=== PATIENT | male | born 1950 | race Caucasian/White ===

== ENCOUNTER 2019-11-26 01:07 | Day surgery (SDC) | payer MEDICARE, SELFPAY ==
[2019-11-21 14:02] VITALS: BMI 29.9
[2019-11-26] MEDS: LACTATED RINGERS 1,000 ML 150 ML IV CONT (08:16)
[2019-11-26 08:24] VITALS: BP 146/85; PULSE 72; RESP 16; TEMP 36.4; O2SAT 98; BMI 30.3
--- NOTE | 2019-11-26 08:31 | P.PNAN_ITS ---
Anes - Initial Pre Proc Eval Procedure: Operation Date: 11/26/19 09:00 Proposed Procedures p Screening Colonoscopy - Tex Mackay MD Date/Time: 11/26/19 08:31 Surgeon: Tex Mackay MD Pre Op Diagnosis: Hx of Colon Polyps Patient Data Age: 69 Gender: M Height: 6 ft Weight: 101.4 kg Last Vital Signs Temp 97.6 F 11/26/19 08:24 Pulse 72 11/26/19 08:24 Resp 16 11/26/19 08:24 BP 146/85 H 11/26/19 08:24 Pulse Ox 98 11/26/19 08:24 Allergies Allergy/AdvReac Type Severity Reaction Status Date / Time No Known Allergies Allergy Verified 11/26/19 08:12 Home Medications Medication Instructions Recorded Confirmed Type irbesartan 300 mg PO DAILY 11/21/19 11/26/19 History simvastatin 40 mg PO DAILY 11/21/19 11/26/19 History Patient hx anesthesia problems: none Family hx anesthesia problems: none [facility] Past Medical History Medical History (Updated 11/26/19 @ 08:30 by Silverio Roger MD) Arthritis Hyperlipidemia Hypertension Anes - Eval Final PreProcedure Day of Procedure 11/26/19 08:31 Patient weight: overweight Heart: regular rate and rhythm Lungs: clear to auscultation Airway: Mallampati scale class II Neurological: alert and oriented Last oral intake: >/= 8 hours ASA classification: II Emergent: no Anesthetic plan: proceed Anesthesia type and monitoring: general GIVS and standard monitoring Informed Consent: The patient's anesthetic plan and its attendant risks and benefits were discussed with the patient/family/POA. Questions were solicited and answers provided to the satisfaction of the patient/family/POA.
--- NOTE | 2019-11-26 09:34 | P.CONGI_ITS ---
Assessment and Plan Additional Plan This is a 69-year-old white male patient seen in evaluation at the request Dr. Cricket Ayala. Patient's current weight appetite bowel movements are normal. He denies any blood in his stools. He does have a prior history of colon polyps approximately 10 years ago. He denies any change in his bowel habits recently. Past medical history is significant for hypertension. Hypercholesterolemia. And a TIA. Medications include irbesartan, and simvastatin. No known drug allergies. Family history noncontributory. Physical exam reveals patient to be alert. Vital signs stable. HEENT exam unremarkable. Lungs are clear to auscultation and percussion. Heart is without murmur or extra sounds. Abdominal exam bowel sounds are present soft nontender with no organomegaly. Digital external rectal exam normal. Impression 1. Personal history of colon polyps. Plan is for screening colonoscopy. Further recommendations pending results of exam. GI Consult Note Consult date/time: 11/26/19 09:34 HPI: Aravind Chavez is a 69 year old male [facility] Past Medical History Medical History (Updated 11/26/19 @ 08:30 by Silverio Roger MD) Arthritis Hyperlipidemia Hypertension Meds Home Medications and Allergies Home Medications Medication Instructions Recorded Confirmed Type irbesartan 300 mg PO DAILY 11/21/19 11/26/19 History simvastatin 40 mg PO DAILY 11/21/19 11/26/19 History Allergies Allergy/AdvReac Type Severity Reaction Status Date / Time No Known Allergies Allergy Verified 11/26/19 08:12 Vital Signs Vital Signs - 24 hr 11/26/19 08:24 Temperature 36.4 C Pulse Rate 72 Respiratory Rate 16 Blood Pressure 146/85 H Pulse Oximetry 98
[2019-11-26] MEDS: SIMETHICONE ORAL SUSPENSION 20 MG/0.3 ML 30 ML BOTTLE 0.6 ML IRRIGATION (09:45)
[2019-11-26 09:56] VITALS: BP 136/74; PULSE 64; RESP 18; O2SAT 98
[2019-11-26 10:06] VITALS: BP 145/76; PULSE 56; RESP 15; O2SAT 97
[2019-11-26 10:16] VITALS: BP 148/79; PULSE 62; RESP 15; O2SAT 97
== END 2019-11-26 10:27 | disposition home or self-care (01) ==
PROVIDERS: PCP Family Medicine; Visit Provider Internal Medicine Gastroenterology
PROC: 0DJD8ZZ Inspection of Lower Intestinal Tract, Via Natural or Artificial Opening Endoscopic (ICD-10-PCS; CPT 45378; principal; 2019-11-26 09:00)
DX: Z12.11 Encounter for screening for malignant neoplasm of colon (principal); K63.5 Polyp of colon; K64.8 Other hemorrhoids; I10 Essential (primary) hypertension; E78.5 Hyperlipidemia, unspecified; M19.90 Unspecified osteoarthritis, unspecified site; Z86.73 Personal history of transient ischemic attack (TIA), and cerebral infarction without residual deficits
CPT/HCPCS: 45385; 88305; J2704; J7120

== ENCOUNTER → 2020-12-22 11:38 | Outpatient (CLI) | payer MEDICARE, SELFPAY ==
--- NOTE | ~2020-12-22 | XR_ITS ---
EXAMINATION: XR knee LT min 4V DATE: 12/22/2020 11:53 INDICATION: Left knee osteoarthritis. TECHNIQUE: 4 views of left knee were obtained. COMPARISON: None. FINDINGS: There is varus angulation at the knee. No fracture. There is severe osteoarthritis of media l compartment, moderate osteoarthritis of patellofemoral compartment, and mild osteoarthritis of late ral compartment. There is a small knee joint effusion. IMPRESSION: 1. Severe left knee osteoarthritis. 2. Small left knee joint effusion. Reviewed, dictated and finalized at location A.
== END ==
PROVIDERS: PCP Family Medicine; Visit Provider Family Medicine
DX: M17.9 Osteoarthritis of knee, unspecified (principal); M25.462 Effusion, left knee
CPT/HCPCS: 73564

== ENCOUNTER 2021-02-15 11:43 | Outpatient (CLI) | payer MEDICARE, SELFPAY ==
--- NOTE | 2021-02-15 12:44 | ECG_ITS ---
Measurements Intervals [place] Rate: 54 P: 15 MD: 152 QRS: -18 QRSD: 162 T: 105 QT: 428 QTc: 409 Interpretive Statements SINUS BRADYCARDIA LEFT BUNDLE BRANCH BLOCK BASELINE ARTIFACT- I, II, AVR, AVL, AVF ABNORMAL ECG Electronically Signed On 02-15-2021 13:04:44 CDT by Chuck Barber D.O.
[2021-02-15 13:40] LABS: Basophils Absolute Auto 0.1 K/mm3 (0.0-0.1); Basophils Percent Auto 0.7 % (0.2-1.2); Eosinophils Absolute Auto 0.1 K/mm3 (0-0.3); Eosinophils Percent Auto 0.7 % (0-4.4); Hematocrit 48.4 % (42.0-52.0); Hemoglobin 16.6 g/dL (14.0-18.0); Immature Granulocyte Absolute 0.02 K/mm3 (0.00-0.031); Immature Granulocyte Percent A 0.3 % (0-0.5); Lymphocytes Absolute Auto 1.83 K/mm3 (0.9-3.2); Lymphocytes Percent Auto 26.5 % (18.3-44.2); Mean Corpuscular HGB Conc 34.3 g/dl (32-36); Mean Corpuscular Hemoglobin 30.3 pg (26-34); Mean Corpuscular Volume 88.3 fl (80-100); Mean Platelet Volume 10.8 fl (7.4-10.4); Monocytes Absolute Auto 0.6 K/mm3 (0.1-0.6); Monocytes Percent Auto 8.1 % (2.6-8.5); Neutrophils Absolute Auto 4.4 K/mm3 (1.3-6.7); Neutrophils Percent Auto 63.7 % (45.5-73.1); Platelet Count Result 162 k/mm3 (150-375); Red Blood Count 5.48 M/mm3 (4.6-6.20); Red Cell Distribution Width 13.3 % (11.5-14.5); White Blood Count 6.9 K/mm3 (4.5-10.0)
[2021-02-15 13:47] LABS: Anion Gap 2 mmol/L (8-16); Blood Urea Nitrogen 24 mg/dL (9-20); Calcium 10.1 mg/dL (8.4-10.2); Carbon Dioxide 33 mmol/L (22-30); Chloride 103 mmol/L (98-107); Estimated Glomerular Filt Rate > 60; Glucose 106 mg/dL (75-110); Potassium 4.2 mmol/L (3.4-5.0); Sodium 138 mmol/L (137-145)
[2021-02-15 13:50] LABS: Hemoglobin A1C 5.3 % (<5.7)
[2021-02-15 13:54] LABS: Albumin Level 4.5 g/dL (3.5-5.1)
[2021-02-15 14:15] LABS: Urine Cotinine NEGATIVE
== END 2021-02-15 11:44 | disposition home or self-care (01) ==
LOC: ANHSURGERY 11:47
PROVIDERS: Anesthesiology; PCP Family Medicine; Visit Provider Orthopaedic Surgery
DX: Z01.818 Encounter for other preprocedural examination (principal); M17.12 Unilateral primary osteoarthritis, left knee; I10 Essential (primary) hypertension; R00.1 Bradycardia, unspecified; I44.7 Left bundle-branch block, unspecified; Z51.81 Encounter for therapeutic drug level monitoring; Z79.899 Other long term (current) drug therapy
CPT/HCPCS: 36415; 80048; 80307; 82040; 83036; 85025; 86850; 86900; 86901; 93005

== ENCOUNTER → 2021-02-20 02:24 | Outpatient (CLI) | payer MEDICARE, SELFPAY ==
[2021-02-20 19:43] LABS: SARS-CoV-2 RNA PCR Negative
== END ==
PROVIDERS: PCP Family Medicine; Visit Provider Orthopaedic Surgery
DX: Z01.812 Encounter for preprocedural laboratory examination (principal); Z20.822 Contact with and (suspected) exposure to COVID-19
CPT/HCPCS: C9803; U0003; U0005

== ENCOUNTER 2021-02-25 13:26 | Observation (INO) | payer MEDICARE, SELFPAY ==
[2021-02-15 11:55] VITALS: BMI 32.0
[2021-02-15 12:49] VITALS: BP 139/78; PULSE 60; RESP 16; TEMP 37; O2SAT 98
--- NOTE | 2021-02-18 16:18 | PM.IMHP ---
H&P: HPI History of Present Illness Date/Time: 02/18/21 16:18 The patient is a 70-year-old male who presents with left knee pain. He has a chronic ongoing history of pain localized left knee joint this is due to primary osteoarthritis. The patient has aching pain worse with activities and relieved by rest. He reports swelling crepitation and problems with standing or walking for long periods. He has limitation of function is losing motion over time as well. He has started pain wrist pain and night pain despite conservative measures including cortisone therapy and anti-inflammatories over the years his symptoms continue. X-rays show advanced primary osteoarthritis worsening over the years. Symptoms continue to interfere with his daily life at this point the patient is discussed treatment options in detail with Dr. Mitchell he would now like to proceed with a left total knee arthroplasty. Chief Complaint: left knee pain due to primary osteoarthritis advanced nature. Review of Systems Review of Systems: All systems reviewed & are unremarkable except as noted in HPI and below PMFSH Past Medical History Medical History Arthritis Hyperlipidemia Hypertension Social History Social History Smoking packs per day: 1 Smoking cigarettes per day: 20.0 Years smoked: 15 Smoking pack-years: 15.00 Smoking status: Former smoker Tobacco type: cigarettes Smoking end date: 10/09/84 Additional smoking assessment comments: DENIES ANY FORM OF TOBACCO USE Alcohol intake: current Drinks per week: 6 Spiritual care concerns: No Meds Home Medications and Allergies Home Medications Medication Instructions Recorded Confirmed Type irbesartan 300 mg PO HS 11/21/19 02/15/21 History simvastatin 20 mg PO HS 11/21/19 02/15/21 History cetirizine [Zyrtec] 10 mg PO DAILY 02/15/21 02/15/21 History glucosamine-chondroitin [Osteo 1 tablet PO BID 02/15/21 02/15/21 History Bi-Flex] indapamide 2.5 mg PO DAILY 02/15/21 02/15/21 History ijvbskpcuvqo-ugvlowev-tjtaak 1 tablet PO DAILY 02/15/21 02/15/21 History [Centrum Silver] omega 1-hvw-azr-fish oil [Fish Oil] 1 cap PO DAILY 02/15/21 02/15/21 History Allergies Allergy/AdvReac Type Severity Reaction Status Date / Time No Known Allergies Allergy Verified 02/15/21 11:57 Exam Narrative: Exam Narrative: On exam the patient is noted be a well-developed well-nourished male no acute distress he is alert oriented x3. Normal mood and affect. HEENT exam within normal limits. Hearing and vision are intact. Respiratory is good not stressed. Pulse regular rate and rhythm. Abdomen benign. extremities showed the patient's left knee to be painful with manipulation and range of motion. He has crepitation through the arc of motion mild effusion swelling tenderness along the joint lines. Motion is limited to 5 to about 95? with pain at extremes of motion. Patient walks with an antalgic gait because of his left knee pain. Neurovascular is otherwise intact strength is 5 5. skin is intact without rashes or lesions. Central nervous system exam within normal limits. Assessment and Plan Additional Plan By x-ray and exam the patient is noted to have severe primary osteoarthritis left knee joint. The patient has discussed risks benefits limitations and alternatives to surgery in great detail with Dr. Mitchell, the patient is now ready to proceed with a left total knee arthroplasty. The patient is scheduled to undergo surgery 02/24/2021 at [facility] with Dr. Mitchell. The patient voices understanding and agrees with the above plan.
[2021-02-24] VITALS (16 sets, daily range): BP systolic 102–135; BP diastolic 47–70; PULSE 55–68; RESP 11–20; TEMP 35.8–36.7; O2SAT 92–100; BMI 31.4
[2021-02-24] MEDS: ACETAMINOPHEN 500 MG TABLET 1000 MG PO (06:20)
[2021-02-24] MEDS: LACTATED RINGERS 1,000 ML 30 ML IV CONT ×2 (06:33→09:29)
[2021-02-24] MEDS: TRANEXAMIC ACID 1,000MG/ISO100 1,000 MG/100 ML BAG 200 MG IVPB (06:34)
--- NOTE | 2021-02-24 06:57 | WPDANESEPPF ---
Anes - Initial Pre Proc Eval Procedure: Operation Date: 02/24/21 07:30 Proposed Procedures p Left Total Knee Arthroplasty - Qamar Mitchell MD Date/Time: 02/24/21 06:57 Surgeon: Qamar Mitchell MD Pre Op Diagnosis: OA left knee Patient Data Age: 70 Gender: M Height: 1.8 m Weight: 102 kg Last Vital Signs Temp 36.6 C 02/24/21 06:14 Pulse 63 02/24/21 06:14 Resp 18 02/24/21 06:14 BP 116/70 02/24/21 06:14 Pulse Ox 96 02/24/21 06:14 Allergies Allergy/AdvReac Type Severity Reaction Status Date / Time No Known Allergies Allergy Verified 02/24/21 06:03 Home Medications Medication Instructions Recorded Confirmed Type irbesartan 300 mg PO HS 11/21/19 02/24/21 History simvastatin 20 mg PO HS 11/21/19 02/24/21 History cetirizine [Zyrtec] 10 mg PO DAILY 02/15/21 02/24/21 History glucosamine-chondroitin [Osteo 1 tablet PO BID 02/15/21 02/24/21 History Bi-Flex] indapamide 2.5 mg PO DAILY 02/15/21 02/24/21 History ayhajelmgdha-qbjvyrvw-oubnkr 1 tablet PO DAILY 02/15/21 02/24/21 History [Centrum Silver] omega 1-jkd-pvp-fish oil [Fish Oil] 1 cap PO DAILY 02/15/21 02/24/21 History Patient hx anesthesia problems: none Family hx anesthesia problems: none PMFSH Past Medical History Medical History (Updated 02/23/21 @ 13:05 by David Chopra DO) Arthritis Hyperlipidemia Hypertension TIA (transient ischemic attack) global amnesia - 2007, 2012 Social History Social History Smoking packs per day: 1 Smoking cigarettes per day: 20.0 Years smoked: 15 Smoking pack-years: 15.00 Smoking status: Former smoker Tobacco type: cigarettes Smoking end date: 10/09/84 Additional smoking assessment comments: DENIES ANY FORM OF TOBACCO USE Alcohol intake: current Drinks per week: 6 Living arrangements: with family Spiritual care concerns: No Anes - Eval Final PreProcedure Day of Procedure 02/24/21 06:57 Patient weight: obese Heart: regular rate and rhythm Lungs: clear to auscultation and normal air movement Airway: Mallampati scale class III Neurological: alert and oriented Last oral intake: >/= 8 hours ASA classification: III Emergent: no Anesthetic plan: proceed Anesthesia type and monitoring: general LMA and standard monitoring Informed Consent: The patient's anesthetic plan and its attendant risks and benefits were discussed with the patient/family/POA. Questions were solicited and answers provided to the satisfaction of the patient/family/POA.
--- NOTE | 2021-02-24 07:07 | WPDANESPNB ---
Anes - Peripheral Nerve Block Date/Time: 02/24/21 07:07 I have discussed with the patient/family/POA the placement of a peripheral nerve block for post-operative pain management, including associated risks, benefits, complications, and side effects. Alternative methods of post-operative analgesia were detailed. Questions were solicited and answers provided to the satisfaction of the patient/family/POA. Time-Out: A pre-procedural Time-Out was completed immediately before starting the procedure and confirmed: Patient Identification, Site, Procedure, Patient Position and the Availability of Requisite Equipment. Clinical Indications: Acute post-operative pain management requested by the operative surgeon. Nerve Block Insertion Note Anes-nerve block: adductor canal left Patient position: supine Skin prep: chlorhexidine Needle: 22 gauge, stimulating, insulated echogenic needle. Needle length: 80 mm Technique: ultrasound Injectate: bupivacaine 0.5% with epi 5 mcg/ml (30cc - no epi) Observations: tolerated well Complications: none Procedure start time:: 719 Procedure end time:: 722
--- NOTE | 2021-02-24 07:13 | WPDHPUPDATE1 ---
History and Physical Update Update Date/Time: 02/24/21 07:13 History and Physical has been reviewed, including an updated exam of the patient. There are NO changes in the patient's condition. Risks, benefits, and alternatives have been discussed and questions answered. Patient agrees to proceed with procedure.
[2021-02-24] MEDS: ceFAZolin 2 GM/D5W 50 ML 2 GM/50 ML BAG IVPB (07:34)
--- NOTE | 2021-02-24 08:51 | PM.PROC ---
Procedure Note - Detailed Date of procedure: 02/24/21 Pre-op diagnosis: OA left knee Post-op diagnosis: same Procedure performed: [Left] total knee arthroplasty Description of procedure: The patient was brought to the operating room. General anesthetic was administered. Placed on the operating table and sterilely prepped and draped in usual manner. A longitudinal incision was made. Tourniquet inflated to 300 mmHg for a total of [time] minutes. Dissection carried down to the fascia. Medial parapatellar incision was made and the patella subluxated laterally. Patella cut from [27] to [17] mm and sized for a [37] mm button. The tibia cut perpendicular to the long axis and femur cut in 5 degrees of valgus, a [65] femur trialed. [75] tibia was felt to fit the best. The soft tissue balanced, hemostasis obtained. All [address], [75] tibia, [65] femur, [37] mm patella, and [16AS] mm poly. Motion was 0-125 degrees with good stablility and flexion and extension. The wound was closed with #2 vicryl, 2-0 Vicryl and jono. Anesthesia: GETA Surgeon: Qamar Mitchell MD Music [employer] Assistant: Cody Smith Estimated blood loss (mL): 200 Drains: No Packing: No Pathology: none sent Complications: No immediate complications Condition: stable Disposition: PACU Findings: arthritis
--- NOTE | 2021-02-24 09:42 | SUR.PHASEI ---
0935 xrays of left knee done.
--- NOTE | 2021-02-24 11:11 | ADMGEN ---
This patient, Aravind Chavez, was admitted to 2 Medical Room 242-01. Patient/family oriented to hospital policies and general routines including ID bracelet, bed and alarms, visiting hours, pain management, procedures, bathroom and other care routines, personal items, smoking policy, room service/diet, and visiting hours. Information on how to activate the Rapid Response Team has been discussed. Patient/Family are encouraged to report perceived risks to care and to ask questions if they do not understand what they are told or what they should do.
[2021-02-24] MEDS: SODIUM CHLORIDE 0.9% IV 1,000 ML 125 ML IV CONT (11:41)
[2021-02-24] MEDS: oxyCODONE/ACETAMINOPHEN (*CRX) 5-325 MG TABLET 1 TABLET PO (13:07)
[2021-02-24] MEDS: ONDANSETRON INJ 4 MG/2 ML VIAL IV PUSH (14:11)
--- NOTE | 2021-02-24 14:32 | PC.NURSE ---
Patient sitting up in chair. Called staff to room due to feeling woozy and nauseated . Went to room and patient pale, diaphoretic and feeling as if he might pass out. Called assistance to room. Telemetry showing HR of 37. Assisted patient back to bed utilizing the filippo steady. Patient recovered quickly after returning to bed and with bed in trendelenberg. VS revealed BP of 100/57, O2 sat 95%, HR in the 50s after returning to bed. Patient became more alert and color improved. Denied further nausea and stated he felt much better . After 10 minutes, HR was in the 70s and remained there. Called Va KELLER and left a voice message notifying her of incident. Also left a message regarding holding patient's B/P meds - Indapamide and Irbesartan. remains at bedside.
[2021-02-24] MEDS: HYDROcodone/acetaminophen (*CRX) 7.5-325 MG TABLET 1 TAB PO ×2 (16:23→22:25)
[2021-02-24] MEDS: DOCUSATE SODIUM 100 MG CAPSULE PO (16:24)
[2021-02-24] MEDS: RIVAROXABAN 10 MG TABLET PO (16:24)
--- NOTE | 2021-02-24 16:28 | PM.IMCN ---
Assessment and Plan Assessment and plan (1) Status post total left knee replacement: Code(s): Z96.652 - Presence of left artificial knee joint Status: Acute Assessment and Plan: POD#0 s/p elective left total knee arthroplasty by Dr. Mitchell 02/24/21. Wound care, DVT prophylaxis, pain control per the primary service. (2) Near syncope: Code(s): R55 - Syncope and collapse Status: Acute Assessment and Plan: Episode of near-syncope a few hours postoperatively. Nursing reported he was sitting up in the chair when he began to feel unwell, heart rate down to 39, blood pressure 102/47. He was transferred by nursing staff back to bed and recovered quickly per nursing. Heart rates now stable again. Continue cardiac telemetry overnight. Vasovagal episode is suspected, recommend continuing IV fluids for now and monitoring fluid status, vital signs. HR back into 70s now and stable. (3) Hypertension: Qualifiers: Hypertension type: unspecified Qualified Code(s): I10 - Essential (primary) hypertension Code(s): I10 - Essential (primary) hypertension Status: Chronic Assessment and Plan: We will hold his indapamide and irbesartan given his hypotension earlier. Monitor BP and adjust treatment as needed. (4) Hyperlipidemia: Qualifiers: Hyperlipidemia type: unspecified Qualified Code(s): E78.5 - Hyperlipidemia, unspecified Code(s): E78.5 - Hyperlipidemia, unspecified Status: Chronic Assessment and Plan: Resume home statin therapy. Additional Plan Thank you for allowing me to participate in this pleasant gentleman's care. Do not hesitate to call for any questions or concerns. HPI Data of Consult Consult date: 02/24/21 Requesting Physician: Qamar Mitchell MD Primary Care Provider: Cricket Ayala MD Consult Narrative Reason for consult: Medical management Narrative: Date of Service 02/24/21 I am asked to see this patient in consultation for postoperative management of medical comorbidities at the request of Dr. Mitchell. The supervising physician for this medical consultation is Dr Darcy Nevarez. Mr. Chavez is a 70yo M with history of arthritis, dyslipidemia, and hypertension who has been followed by orthopedic surgery for management of chronic left knee pain due to primary osteoarthritis. Despite attempts of conservative management with cortisone injections and anti-inflammatory medications, his symptoms persist thus he presented for elective knee replacement. He underwent left total knee arthroplasty today by Dr. Mitchell. He has tolerated the procedure well although he did have an episode of near-syncope earlier today while sitting up in the bedside chair. Nursing reports his heart rate was as low as 39, blood pressure 102/47 at which time he was transferred back to bed and recovered quickly with heart rates back up into the 70s and his symptoms resolved. He is feeling well at this time and denies any chest pain, shortness of breath, palpitations, nausea, vomiting, abdominal pain. He describes expected left knee discomfort. Review of Systems Review of Systems: All systems reviewed & are unremarkable except as noted in HPI and below PMFSH Past Medical History Medical History Arthritis Hyperlipidemia Hypertension TIA (transient ischemic attack) global amnesia - 2007, 2012 Family History Family History (Updated 02/24/21 @ 17:24 by Va Patino PA-C) Sibling Diabetes mellitus Type 1 diabetes Mother Pacemaker Dementia Father Abdominal aortic aneurysm Carcinoma of colon Skin cancer Social History Social History (Updated 02/24/21
[2021-02-24] MEDS: SIMVASTATIN 20 MG TABLET PO (20:44)
[2021-02-24] MEDS: traMADol HCL (*CRX) 50 MG TABLET PO (20:48)
[2021-02-25] VITALS (10 sets, daily range): BP systolic 111–144; BP diastolic 49–59; PULSE 66–81; RESP 16–18; TEMP 36.4–37.2; O2SAT 95–99
--- NOTE | ~2021-02-25 | XR_ITS ---
EXAMINATION: XR knee LT 2V EXAM DATE: 02/24/2021 09:41 INDICATION: Postoperative left knee arthroplasty. TECHNIQUE: Portable frontal, crosstable lateral projections left knee obtained immediately following arthroplasty performed by orthopedic surgeon Qamar Mitchell MD. FINDINGS: Patient is status post total knee arthroplasty. The orthopedic hardware is in expected po sition. There are jono overlying the anterior aspect of the knee. There is small amount of subcu taneous gas, gas within the knee joint space. Overlying soft tissue swelling. Correlate with proced ure note. IMPRESSION: Status post total left knee arthroplasty. Reviewed, dictated and finalized at location A.
--- NOTE | ~2021-02-25 | US_ITS ---
EXAMINATION: US venous doppler LE EXAM DATE: 02/25/2021 11:19 INDICATION: L calf tenderness x 1 month. Knee replacement yesterday. TECHNIQUE: Multiple grayscale, color flow and Doppler images of the lower extremity deep venous syste ms bilaterally were obtained and reviewed. There is no prior study for comparison. FINDINGS: Right side: The right common femoral, femoral and profunda veins demonstrate normal color flow, respi ratory variation, augmentation and compressibility. Compressibility, color flow confirmed within the right popliteal, posterior tibial, peroneal, and greater saphenous veins. Left side: The left common femoral, femoral and profunda veins demonstrate normal color flow, respira tory variation, augmentation and compressibility. Compressibility, color flow confirmed within the l eft popliteal, posterior tibial, peroneal, and greater saphenous veins. Along the upper medial aspect of the calf there is heterogeneous echogenicity region which appears to be intramuscular, avascular area, measuring 15 x 2.4 x 6.4 cm, appearance most consistent with hemat nguyen. Myositis ossificans or muscle tear not excludable. Consider follow-up ultrasound. IMPRESSION: 1. No lower extremity deep venous thrombosis bilaterally. 2. Left calf region most likely intramuscular hematoma but no muscle tear or myositis ossificans not excludable. Clinical correlation and consider one-month follow-up ultrasound. Reviewed, dictated and finalized at location A. IMPRESSION: 1. No lower extremity deep venous thrombosis bilaterally. 2. Left calf region most likely intramuscular hematoma but no muscle tear or m yositis ossificans not excludable. Clinical correlation and consider one-month follow-up ultrasound.
[2021-02-25] MEDS: CYCLOBENZAPRINE HCL 10 MG TABLET PO ×3 (02:50→20:36)
[2021-02-25 05:43] LABS: Basophils Percent Auto 0.1 % (0.2-1.2); Eosinophils Percent Auto 0.1 % (0-4.4); Hematocrit 38.5 % (42.0-52.0); Hemoglobin 13.3 g/dL (14.0-18.0); Immature Granulocyte Absolute 0.03 K/mm3 (0.00-0.031); Immature Granulocyte Percent A 0.3 % (0-0.5); Immature Platelet Fraction Pct 4.3 % (0.9-11.2); Lymphocytes Absolute Auto 0.97 K/mm3 (0.9-3.2); Lymphocytes Percent Auto 10.6 % (18.3-44.2); Mean Corpuscular HGB Conc 34.5 g/dl (32-36); Mean Corpuscular Hemoglobin 30.2 pg (26-34); Mean Corpuscular Volume 87.3 fl (80-100); Mean Platelet Volume 10.4 fl (7.4-10.4); Monocytes Absolute Auto 1.3 K/mm3 (0.1-0.6); Monocytes Percent Auto 13.9 % (2.6-8.5); Neutrophils Absolute Auto 6.9 K/mm3 (1.3-6.7); Platelet Count Result 139 k/mm3 (150-375); Red Blood Count 4.41 M/mm3 (4.6-6.20); Red Cell Distribution Width 13.1 % (11.5-14.5); White Blood Count 9.2 K/mm3 (4.5-10.0)
[2021-02-25 05:58] LABS: Anion Gap 3 mmol/L (8-16); Blood Urea Nitrogen 25 mg/dL (9-20); Calcium 8.5 mg/dL (8.4-10.2); Carbon Dioxide 29 mmol/L (22-30); Chloride 103 mmol/L (98-107); Estimated CRCL calculation 68 ml/min; Estimated Glomerular Filt Rate > 60; Glucose 124 mg/dL (75-110); Sodium 135 mmol/L (137-145)
[2021-02-25] MEDS: HYDROcodone/acetaminophen (*CRX) 7.5-325 MG TABLET 1 TAB PO ×3 (06:08→18:17)
[2021-02-25] MEDS: DOCUSATE SODIUM 100 MG CAPSULE PO ×2 (08:23→17:32)
--- NOTE | 2021-02-25 09:48 | PM.IMPN ---
Progress Note: A&P Assessment and Plan (1) Status post total left knee replacement: Code(s): Z96.652 - Presence of left artificial knee joint Status: Acute Assessment and Plan: POD#1 s/p elective left total knee arthroplasty by Dr. Mitchell 02/24/21. Wound care, DVT prophylaxis (Xarelto 10mg daily), pain control per the primary service. He describes pain in left calf with L ankle and knee range of motion. He describes left calf tightness and tenderness with walking for about 1 month. He tells me he can hardly put weight on left leg today. I encouraged him to discuss this with Dr Mitchell and/or DENNISE Ross. Left lower leg is a bit swollen this morning, not unexpected POD#1. Symptoms may be of musculoskeletal etiology but given his history and exam I feel it would be prudent to obtain venous dopplers to rule out L leg DVT. He tells me this did cross his mind as he received J&J COVID vaccine shortly before these symptoms started. (2) Near syncope: Code(s): R55 - Syncope and collapse Status: Resolved Assessment and Plan: Resolved. Episode yesterday of near-syncope a few hours postoperatively. Nursing reported he was sitting up in the chair when he began to feel unwell, heart rate down to 39, blood pressure 102/47. He was transferred by nursing staff back to bed and recovered quickly per nursing. Heart rates now stable again. Cardiac telemetry overnight is reviewed and shows no arrhythmias or other episodes of bradycardia. Vasovagal episode is suspected. (3) Hypertension: Qualifiers: Hypertension type: unspecified Qualified Code(s): I10 - Essential (primary) hypertension Code(s): I10 - Essential (primary) hypertension Status: Chronic Assessment and Plan: We will hold his indapamide and irbesartan given his vagal episode yesterday and continued BPs on the lower end. I recommended to him follow up with Dr Ayala (PCP) in 1 week and hold irbesartan and indapamide until he sees PCP. He agrees to continue monitoring his BP at home and will keep a log to show Dr Ayala at his appointment. One or both of these medications will likely need added back. Monitor BP and adjust treatment as needed. (4) Hyperlipidemia: Qualifiers: Hyperlipidemia type: unspecified Qualified Code(s): E78.5 - Hyperlipidemia, unspecified Code(s): E78.5 - Hyperlipidemia, unspecified Status: Chronic Assessment and Plan: Resume home statin therapy. Additional Plan Thank you for allowing me to participate in this pleasant gentleman's care. Venous dopplers LE ordered to rule out L leg DVT. Hold his blood pressure medications at discharge and follow up with PCP. Do not hesitate to call for any questions or concerns. Subjective Date/time seen: 02/25/21 09:45 Interval history: Mr. Chavez is a pleasant 70 yo M seen in follow up POD#1 s/p elective right total knee arthroplasty by Dr Mitchell. He endorses a painful left calf with decreased range of motion this morning. He notes that he has had left calf tightness and pain with dorsal extension over the last 1 month. He has swelling of left lower leg today postoperatively but had not noticed left leg swelling prior to surgery. He denies any chest pain or shortness of breath. Tolerated breakfast. Had mild nausea around 6AM taking medications without food, this has resolved. No vomiting. No other dizziness. , Hanane, at the bedside. Review of Systems Review of Systems: All systems reviewed & are unremarkable except as noted in HPI and below Exam Narrative: Exam Narrative: General: Well-developed male resting comfortably sitting up in bed working with PT in no acute distress. HEENT: Normocephalic, EO
[2021-02-25] MEDS: SODIUM CHLORIDE 0.9% IV 500 ML 999 ML IV CONT (10:28)
--- NOTE | 2021-02-25 11:30 | PM.PNORT ---
Progress Note: A&P Additional Plan Patient is status post total knee arthroplasty postop day 1, venous duplex scan is pending rule out DVT. Continue with pain control measures physical therapy as tolerated. Encourage hydration p.o. hopefully we can discharge the patient tomorrow, the patient's voiced understanding with the above plan. Subjective Subjective Date/Time Seen: 02/25/21 11:30 Patient is postop day 1 status post total knee arthroplasty, going slowly in therapy having a lot of postoperative pain became diaphoretic, dizziness when he was doing therapy yesterday and today, once he sits down he starts to feel a lot better. Due to some swelling and calf tenderness a venous duplex scan has been ordered. Patient otherwise has no complaints no other problems noted postoperatively. Review of Systems Review of Systems: All systems reviewed & are unremarkable except as noted in HPI and below Exam Narrative: Exam Narrative: Patient is alert oriented x3. Normal mood and affect. Vital signs are stable he is afebrile. Neurovascular patient is intact. Wound is clean and dry. Postoperative knee wound is looking good, he does have some calf tenderness, moderate postoperative swelling, on that side notes pain with physical therapy that was causing him to feel faint. Exam is otherwise unremarkable. Objective Data Vital Signs Vital Signs: Vital Signs - 24 hr 02/24/21 11:45 02/24/21 12:00 02/24/21 12:45 Temperature 35.8 C L 36.0 C L Pulse Rate 59 L 63 61 Respiratory Rate 20 20 Blood Pressure 126/56 L 126/57 L Pulse Oximetry 92 93 02/24/21 14:00 02/24/21 16:00 02/24/21 17:00 Temperature 35.8 C L 36.7 C Pulse Rate 55 L 59 L 66 Respiratory Rate 18 18 Blood Pressure 102/47 L 125/65 Pulse Oximetry 94 97 02/24/21 20:00 02/25/21 00:00 02/25/21 04:00 Temperature 36.5 C 36.6 C Pulse Rate 63 67 66 Respiratory Rate 18 16 Blood Pressure 124/52 L 111/54 L Pulse Oximetry 99 95 02/25/21 05:30 02/25/21 08:00 02/25/21 10:15 Temperature 36.4 C 36.4 C Pulse Rate 72 67 72 Respiratory Rate 18 18 Blood Pressure 118/59 L 123/49 L Pulse Oximetry 98 97 Intake/Output Intake/Output: Intake & Output 02/22/21 02/23/21 02/24/21 02/25/21 23:59 23:59 23:59 23:59 Intake Total 1560 590 Output Total 200 400 Balance 1360 190 Meds/Results Medications: Active Medications Generic Name Dose Route Start Last Admin Trade Name Freq PRN Reason Stop Dose Admin Hydrocodone Bitart/Acetaminophen 1 tab 02/24/21 08:54 02/25/21 06:08 Hydrocodone/Acetaminophen (*Crx) 7.5-325 Mg Tablet PO 1 tab Q6H PRN Administration Pain Rated 7-10 Cyclobenzaprine HCl 10 mg 02/24/21 08:54 02/25/21 02:50 Cyclobenzaprine Hcl 10 Mg Tablet PO 10 mg Q8H PRN Administration Spasms Docusate Sodium 100 mg 02/24/21 17:00 02/25/21 08:23 Docusate Sodium 100 Mg Capsule PO 100 mg BID KURTIS Administration Indapamide 2.5 mg 02/24/21 09:00 02/24/21 15:30 Indapamide 2.5 Mg Tablet PO Not Given DAILY KURTIS Irbesartan 300 mg 02/24/21 21:00 Irbesartan 150 Mg Tablet PO HS KURTIS Naloxone HCl 0.1 mg 02/24/21 08:54 Naloxone Hcl 0.4 Mg/Ml Vial IV PUSH Q2M PRN Opiate Reversal Ondansetron HCl 4 mg 02/24/21 11:46 02/24/21 14:11 Ondansetron Inj 4 Mg/2 Ml Vial IV PUSH 4 mg Q4H PRN Administration Nausea And Vomiting Oxycodone/Acetaminophen 1 tablet 02/24/21 08:54 02/24/21 13:07 Oxycodone/Acetaminophen (*Crx) 5-325 Mg Tablet PO 1 tablet Q4H PRN Administration Pain Rated 4-6 Rivaroxaban 10 mg 02/24/21 17:00 02/24/21 16:24 Rivaroxaban 10 Mg Tablet PO 03/07/21 17:01 10 mg DAILY@17 KURTIS Administration Simvastatin 20 mg 02/24/21 21:00 02/24/21 20:44 Simvastatin 20 Mg Tablet PO 20 mg HS KURTIS Administration Tramadol HCl 50 mg 02/24/21 08:54 02/24/21 20:48 Tramadol Hcl (*Crx) 50 Mg Tablet PO 50 mg Q4H PRN Administration
--- NOTE | 2021-02-25 13:32 | P.PNAN_ITS ---
Anes - Prog Note Post-Op Date/Time: 02/25/21 13:32 Cardiovascular status: normal Respiratory status: normal Airway patency: baseline Mental status: baseline Post-Op hydration status: normal Vital Signs: Last Vital Signs Temp 36.4 C 02/25/21 10:15 Pulse 69 02/25/21 12:00 Resp 18 02/25/21 10:15 BP 123/49 L 02/25/21 10:15 Pulse Ox 97 02/25/21 10:15 Pain Score (VAS): 10 I/O: Intake & Output 02/24/21 02/25/21 02/25/21 23:59 07:59 15:59 Intake Total 1190 350 740 Output Total 200 400 Balance 990 -50 740 Laboratory Tests 02/25/21 05:13 02/25/21 05:13 02/25/21 02/25/21 05:13 05:13 WBC 9.2 RBC 4.41 L Hgb 13.3 L D Hct 38.5 L MCV 87.3 MCH 30.2 MCHC 34.5 RDW 13.1 Plt Count 139 L MPV 10.4 Immature Gran % (Auto) 0.3 Neut % (Auto) 75.0 H Lymph % (Auto) 10.6 L [place] % (Auto) 13.9 H Eos % (Auto) 0.1 Baso % (Auto) 0.1 L Lymph # (Auto) 0.97 [place] # (Auto) 1.3 H Eos # (Auto) 0.0 Baso # (Auto) 0.0 Abs Immat Gran (auto) 0.03 Absolute Neuts (auto) 6.9 H Absolute Nucleated RBC 0.0 Nucleated RBC % 0.0 % Immature Plt Fraction 4.3 Sodium 135 L Potassium 4.0 Chloride 103 Carbon Dioxide 29 Anion Gap 3 L BUN 25 H Creatinine 1.10 Estim Creat Clear Calc 68 Estimated GFR > 60 Glucose 124 H Calcium 8.5 Magnesium 2.0 Post-procedural complaints: none Patient Feedback: Patient satisfied with anesthetic care.
[2021-02-25] MEDS: SIMVASTATIN 20 MG TABLET PO (20:36)
[2021-02-26] VITALS (11 sets, daily range): BP systolic 130–153; BP diastolic 50–70; PULSE 77–108; RESP 16–22; TEMP 36.8–37.1; O2SAT 92–99
--- NOTE | 2021-02-26 | ECHO_ITS ---
Patient Info Name: Aravind Chavez Age: 70 years : 1950 Gender: Male Ht: 71 in Wt: 224 lbs BSA: 2.28 m2 HR: 91 bpm BP: 145 / 70 mmHg Heart Rhythm: Sinus Rhythm Technical Quality: Good Exam Date: 02/26/2021 2:57 PM Exam Location: [facility] Patient Status: Inpatient Admit Date: 02/25/2021 Staff Ordering Physician: Va Patino PA-C Wheel Setter: Samir Rodriguez, MERISSACS, RT Attending Provider: Qamar Mitchell MD Exam Type: CA echo doppler color flow Study Info Indications R01.1 - Cardiac murmur, unspecified Complete two-dimensional, color flow and Doppler transthoracic echocardiogram is performed with contrast to opacify the left ventricle and to improve the deliniation of the left ventricle endocardial borders. Summary 1. Left ventricular systolic function is hyperdynamic, estimated at >75%. 2. Technically difficult study with limited views. 3. Left ventricular chamber dimension is normal. 4. There is mildly increased left ventricular wall thickness. 5. Left ventricular septal wall motion is abnormal with septal motion related to bundle branch block. 6. The left ventricular diastolic function is grade II diastolic dysfunction. 7. No clear evidence of LVOT obstruction. 8. The aortic valve is not well visualized. Velocities likely elevated due to hyperdynamic LV systolic function. 9. There is mild aortic valve stenosis with a peak velocity of 342 cm/s, mean gradient of 17 mmHg, and aortic valve area of 1.7 cm2. 10. There is no aortic valve regurgitation. 11. There is probably mild mitral valve regurgitation, however, regurgitant jet not well visualized and appears more prominent on continuous wave Doppler. 12. The mitral valve has thickened leaflets. 13. The mitral valve annulus is moderately calcified. In 2 chamber view only there appears to be a focal echodensity below the anterior leaflet and annulus differential includes annular calcification, mass, artifact. Clinical correlation advised. Consider NILDA. 14. There is trace tricuspid valve regurgitation. 15. Mild pulmonary hypertension, estimated pulmonary arterial systolic pressure is 43 mmHg. Recommendations * Recommend transesophageal echocardiogram. Left Ventricle Technically difficult study with limited views. Left ventricular systolic function is hyperdynamic, estimated at >75%. Left ventricular chamber dimension is normal. There is mildly increased left ventricular wall thickness. Left ventricular septal wall motion is abnormal with septal motion related to bundle branch block. The left ventricular diastolic function is grade II diastolic dysfunction. No clear evidence of LVOT obstruction. Right Ventricle Right ventricular chamber dimension is normal. Right ventricular systolic function is normal. Left Atria Left atrial chamber dimension is mildly enlarged. Right Atria Right atrial chamber dimension is not well visualized. Aortic Valve The aortic valve is not well visualized. Velocities likely elevated due to hyperdynamic LV systolic function. There is mild aortic valve stenosis with a peak velocity of 342 cm/s, mean gradient of 17 mmHg, and aortic valve area of 1.7 cm2. There is no aortic valve regurgitation. Pulmonic Valve The pulmonic valve is not well visualized. Mitral Valve There is probably mild mitral valve regurgitation, however, regurgitant jet not well visualized and appears more prominent on continuous wave Doppler. The mitral valve has thickened leaflets. The mitral valve annulus
[2021-02-26] MEDS: HYDROcodone/acetaminophen (*CRX) 7.5-325 MG TABLET 1 TAB PO ×4 (00:29→19:22)
--- NOTE | 2021-02-26 08:53 | ECG_ITS ---
Measurements Intervals [place] Rate: 74 P: 258 FL: 166 QRS: -45 QRSD: 157 T: 101 QT: 409 QTc: 455 Interpretive Statements SINUS RHYTHM CHANGES TO ECTOPIC ATRIAL RHYTHM MARKED LEFT AXIS DEVIATION LEFT BUNDLE BRANCH BLOCK ABNORMAL ECG Electronically Signed On 02-26-2021 10:06:29 CDT by Chuck Barber D.O.
--- NOTE | 2021-02-26 09:13 | PM.IMPN ---
Progress Note: A&P Assessment and Plan (1) Status post total left knee replacement: Code(s): Z96.652 - Presence of left artificial knee joint Status: Acute Assessment and Plan: POD#2 s/p elective left total knee arthroplasty by Dr. Mitchell 02/24/21. Wound care, DVT prophylaxis (Xarelto stopped, see below), pain control per the primary service. (2) Ventricular arrhythmia: Code(s): I49.9 - Cardiac arrhythmia, unspecified Status: Acute Assessment and Plan: I was notified by RN at 0833 of VTach alarm on patient's telemetry while walking back from the bathroom with PT. He described palpitations but denies chest pain or shortness of breath. He notes he has no history of heart disease or arrhythmias to his knowledge. His mother did have a pacemaker and he is unsure of the indication. He is having quite a bit of pain with left calf hematoma which may have precipitated this? I do appreciate a systolic murmur and feel it would be prudent to obtain an echocardiogram while he is here. I appreciate any further recommendations from cardiology. (3) Intramuscular hematoma: Code(s): T14.8XXA - Other injury of unspecified body region, initial encounter Status: Acute Assessment and Plan: US venous doppler of CICI LE obtained yesterday due to patient describing left calf tightness and cramping ongoing over the last 1 month, worsened after surgery with decreased L ankle and L knee range of motion. US demonstrated what appears may be up to 15cm intramuscular hematoma to left calf. I discussed this last night with DENNISE Ross and we agreed to stop Xarelto which was started for DVT prophylaxis. Discussed he might start aspirin in a couple days instead. Check H&H today. (4) Near syncope: Code(s): R55 - Syncope and collapse Status: Resolved Assessment and Plan: Resolved. Episode 02/24 of near-syncope a few hours postoperatively. Nursing reported he was sitting up in the chair when he began to feel unwell, heart rate down to 39, blood pressure 102/47. He was transferred by nursing staff back to bed and recovered quickly per nursing. Vasovagal episode was suspected. He has been monitored on cardiac telemetry which revealed the episode of possible ventricular arrhythmia this morning. (5) Hypertension: Qualifiers: Hypertension type: unspecified Qualified Code(s): I10 - Essential (primary) hypertension Code(s): I10 - Essential (primary) hypertension Status: Chronic Assessment and Plan: His indapamide and irbesartan had been held due to vagal episode 02/24 and continued BPs on the lower end. Blood pressures are coming up overnight and this morning, resume his losartan. Indapamide still held. Monitor BP and will adjust treatment as needed. (6) Hyperlipidemia: Qualifiers: Hyperlipidemia type: unspecified Qualified Code(s): E78.5 - Hyperlipidemia, unspecified Code(s): E78.5 - Hyperlipidemia, unspecified Status: Chronic Assessment and Plan: Resumed home statin therapy. Additional Plan Thank you for allowing me to participate in this pleasant gentleman's care. Since telemetry shows what appears may have been ventricular tachycardia, I have ordered an EKG (although he is back in sinus rhythm now), echocardiogram, and requested cardiology consultation. He may benefit from further monitoring with Holter after discharge if appropriate. Would be reasonable to monitor patient overnight if OK with primary service. I have asked nursing to notify the primary service of the events this AM and today's plan. Do not hesitate to call for any questions or concerns.
[2021-02-26 09:59] LABS: Hematocrit 36.3 % (42.0-52.0); Hemoglobin 12.4 g/dL (14.0-18.0)
[2021-02-26] MEDS: DOCUSATE SODIUM 100 MG CAPSULE PO ×2 (10:02→18:05)
[2021-02-26] MEDS: IRBESARTAN 150 MG TABLET 300 MG PO (10:02)
[2021-02-26 10:06] LABS: Anion Gap 3 mmol/L (8-16); Blood Urea Nitrogen 20 mg/dL (9-20); Calcium 8.7 mg/dL (8.4-10.2); Carbon Dioxide 27 mmol/L (22-30); Chloride 104 mmol/L (98-107); Estimated CRCL calculation 68 ml/min; Estimated Glomerular Filt Rate > 60; Glucose 125 mg/dL (75-110); Magnesium 1.9 mg/dL (1.6-2.3); Potassium 3.8 mmol/L (3.4-5.0); Sodium 134 mmol/L (137-145)
--- NOTE | 2021-02-26 11:58 | PM.CNCAR ---
Assessment and Plan Assessment and plan (1) Ventricular arrhythmia: Code(s): I49.9 - Cardiac arrhythmia, unspecified Status: Acute Assessment and Plan: gate person alarm for VT was erroneous. Upon telemetry review patient noted to be in sinus tachycardia in the 130's with some artifact. No other arrhythmias noted on telemetry review. (2) Near syncope: Code(s): R55 - Syncope and collapse Status: Resolved Assessment and Plan: Secondary to pain response and possible dehydration. Would recommend pre-medicating with analgesics prior to physical therapy and encourage oral fluid intake. (3) Murmur, cardiac: Code(s): R01.1 - Cardiac murmur, unspecified Status: Acute Assessment and Plan: II/ systolic murmur loudest RUSB. Echocardiogram to be performed today - recommendations to follow with any significant findings related to this murmur (4) Left bundle branch block: Code(s): I44.7 - Left bundle-branch block, unspecified Status: Acute Assessment and Plan: Noted on 12 lead EKGs from 02/15/2021 and today, however was not noted on prior EKG from 2012. Would consider a nuclear stress test to assess for any coronary disease that might be the cause of this left bundle. However, patient states that he had a stress test recently as an outpatient as part of evaluation for his upcoming surgery. Will obtain those results from our office and will see patient in our office for outpatient follow-up. (5) Hyperlipidemia: Qualifiers: Hyperlipidemia type: unspecified Qualified Code(s): E78.5 - Hyperlipidemia, unspecified Code(s): E78.5 - Hyperlipidemia, unspecified Status: Chronic Assessment and Plan: Continue statin therapy. (6) Hypertension: Qualifiers: Hypertension type: unspecified Qualified Code(s): I10 - Essential (primary) hypertension Code(s): I10 - Essential (primary) hypertension Status: Chronic Assessment and Plan: Well controlled during this admission. Continue irbesartan and indapamide. (7) Intramuscular hematoma: Code(s): T14.8XXA - Other injury of unspecified body region, initial encounter Status: Acute Assessment and Plan: Anticoagulation being held. Slight downtrend in H&H today. Management per primary service. (8) Status post total left knee replacement: Code(s): Z96.652 - Presence of left artificial knee joint Status: Acute Assessment and Plan: Status post total knee arthroplasty on 02/24/2021. Management per primary service. History of Present Illness History of Present Illness Consult date/time: Date of service 02/26/21 11:58: Cardiology consultation for suspected ventricular tachycardia, pre syncope. Patient is a 70-year-old male with past medical history of hypertension, hyperlipidemia, and is status post left knee total arthroplasty on 02/24/2021. Patient states that this morning after he walked to the bathroom, he experienced a period of lightheadedness he felt like he may pass out. He states that this has happened on 2 other occasions following his surgery during physical therapy treatments. He also states that this has happened to him 1 time when he became dehydrated while golfing during hot weather. On this particular occasion this morning there was concern that the patient may be in ventricular tachycardia as the survey researcher indicated so. Patient states he thinks his symptoms lasted for couple of minutes. He states that his symptoms were resolved by lying down and have not returned. Patient is having a significant amount of pain in his left knee and lower leg with any out of bed activities. He says this pain is the worst during physical therapy treatments. He denies any palpitations, shortness of breath, chest pain associated with these episodes where he feels lightheaded. Reason For Visit: OA left knee Review of Systems
--- NOTE | 2021-02-26 12:36 | PM.PNORT ---
Progress Note: A&P Additional Plan Postop day 2 left total knee arthroplasty. Patient is having pain control issues difficulty with physical therapy and has a hematoma collection posterior calf. Cardiology workup is going to be done today if he is cleared in doing better tomorrow hopefully will be discharged home. Patient voiced understanding agrees above plan orthopedics will follow. Activity otherwise as tolerated, continue physical therapy for total knee protocol. Subjective Subjective Date/Time Seen: 02/26/21 12:36 Patient is postop day 2 status post left total knee arthroplasty, still having trouble with physical therapy and another episode today feeling faint or dizzy when up in therapy. Was unable to participate much, patient became tachycardic but no chest pain. Patient is going to be worked up by Cardiology prior to discharge. Venous duplex scan yesterday showed hematoma formation in the proximal calf likely due to some postoperative bleeding. The patient does have significant swelling throughout the entire left lower extremity. Xarelto has been held. Patient states his pain is a little better today still significant. He denies any other complaints right now. Review of Systems Review of Systems: All systems reviewed & are unremarkable except as noted in HPI and below Exam Narrative: Exam Narrative: Patient is alert oriented x3 normal mood and affect in no acute distress now in bed. Vital signs are stable afebrile neurovascular patient is intact wound is clean and dry. Left calf and left thigh are both moderately swollen with tenderness throughout. Venous duplex scan was negative for DVT. Objective Data Vital Signs Vital Signs: Vital Signs - 24 hr 02/25/21 14:00 02/25/21 16:00 02/25/21 18:00 Temperature 37.2 C 36.9 C Pulse Rate 73 73 81 Respiratory Rate 16 16 Blood Pressure 130/53 L 131/58 L Pulse Oximetry 95 99 02/25/21 20:00 02/26/21 00:00 02/26/21 04:00 Temperature 36.8 C Pulse Rate 77 79 83 Respiratory Rate 16 Blood Pressure 144/52 H Pulse Oximetry 97 02/26/21 06:19 02/26/21 08:00 02/26/21 08:40 Temperature 36.8 C 37.1 C Pulse Rate 77 81 105 H Respiratory Rate 16 22 H Blood Pressure 153/57 H 145/70 H Pulse Oximetry 97 98 02/26/21 11:21 02/26/21 12:00 Temperature Pulse Rate 90 Respiratory Rate Blood Pressure Pulse Oximetry 92 Intake/Output Intake/Output: Intake & Output 02/23/21 02/24/21 02/25/21 02/26/21 23:59 23:59 23:59 23:59 Intake Total 1560 2370 840 Output Total 200 600 300 Balance 1360 1770 540 Meds/Results Medications: Active Medications Generic Name Dose Route Start Last Admin Trade Name Freq PRN Reason Stop Dose Admin Hydrocodone Bitart/Acetaminophen 1 tab 02/24/21 08:54 02/26/21 06:29 Hydrocodone/Acetaminophen (*Crx) 7.5-325 Mg Tablet PO 1 tab Q6H PRN Administration Pain Rated 7-10 Cyclobenzaprine HCl 10 mg 02/24/21 08:54 02/25/21 20:36 Cyclobenzaprine Hcl 10 Mg Tablet PO 10 mg Q8H PRN Administration Spasms Docusate Sodium 100 mg 02/24/21 17:00 02/26/21 10:02 Docusate Sodium 100 Mg Capsule PO 100 mg BID KURTIS Administration Indapamide 2.5 mg 02/24/21 09:00 02/24/21 15:30 Indapamide 2.5 Mg Tablet PO Not Given DAILY KURTIS Irbesartan 300 mg 02/26/21 09:00 02/26/21 10:02 Irbesartan 150 Mg Tablet PO 300 mg QAM KURTIS Administration Naloxone HCl 0.1 mg 02/24/21 08:54 Naloxone Hcl 0.4 Mg/Ml Vial IV PUSH Q2M PRN Opiate Reversal Ondansetron HCl 4 mg 02/24/21 11:46 02/24/21 14:11 Ondansetron Inj 4 Mg/2 Ml Vial IV PUSH 4 mg Q4H PRN Administration Nausea And Vomiting Oxycodone/Acetaminophen 1 tablet 02/24/21 08:54 02/24/21 13:07 Oxycodone/Acetaminophen (*Crx) 5-325 Mg Tablet PO 1 tablet Q4H PRN Administration Pain Rated 4-6 Rivaroxaban 10 mg 02/24/21 17:00 02/24/21 16:24 Rivaroxaban 10 Mg Tablet PO 10 mg DAILY@17 [facility]
[2021-02-26] MEDS: PERFLUTREN LIPID MICROSPHERES 1.5 ML VIAL DILUTED TO 10 ML TOTAL VOLUME IV PUSH (15:45)
[2021-02-26] MEDS: SIMVASTATIN 20 MG TABLET PO (20:17)
[2021-02-26] MEDS: CYCLOBENZAPRINE HCL 10 MG TABLET PO (20:17)
[2021-02-27] VITALS: PULSE 75
[2021-02-27] MEDS: HYDROcodone/acetaminophen (*CRX) 7.5-325 MG TABLET 1 TAB PO ×2 (02:19→13:33)
[2021-02-27 04:00] VITALS: BP 136/56; PULSE 71; PULSE 82; RESP 16; TEMP 37; O2SAT 97
[2021-02-27 06:00] LABS: Hemoglobin 12.2 g/dL (14.0-18.0)
[2021-02-27] MEDS: traMADol HCL (*CRX) 50 MG TABLET PO (06:08)
[2021-02-27 06:15] LABS: Anion Gap 1 mmol/L (8-16); Blood Urea Nitrogen 20 mg/dL (9-20); Calcium 8.4 mg/dL (8.4-10.2); Carbon Dioxide 30 mmol/L (22-30); Chloride 104 mmol/L (98-107); Estimated CRCL calculation 75 ml/min; Estimated Glomerular Filt Rate > 60; Glucose 111 mg/dL (75-110); Potassium 3.6 mmol/L (3.4-5.0); Sodium 135 mmol/L (137-145)
[2021-02-27 08:00] VITALS: PULSE 71
[2021-02-27] MEDS: IRBESARTAN 150 MG TABLET 300 MG PO (09:00)
[2021-02-27 09:03] VITALS: RESP 18; O2SAT 97
[2021-02-27] MEDS: DOCUSATE SODIUM 100 MG CAPSULE PO (09:03)
[2021-02-27 12:00] VITALS: BP 123/54; PULSE 75; PULSE 76; RESP 14; TEMP 36.6; O2SAT 97
--- NOTE | 2021-02-27 15:11 | PM.IMPN ---
Progress Note: A&P Assessment and Plan (1) Status post total left knee replacement: Code(s): Z96.652 - Presence of left artificial knee joint Status: Acute Assessment and Plan: POD#3 s/p elective left total knee arthroplasty by Dr. Mitchell 02/24/21. Wound care, DVT prophylaxis (Xarelto stopped, see below), pain control per the primary service. (2) Left bundle branch block: Code(s): I44.7 - Left bundle-branch block, unspecified Status: Acute Assessment and Plan: major account representative alarmed VTach while walking up with physical therapy. Cardiology was consulted and it was determined the rhythm in question was sinus tachycardia. EKGs demonstrate left bundle branch block. Echocardiogram results noted. He will follow up with Dr Nixon within the next 2 months per his recommendation. (3) Intramuscular hematoma: Code(s): T14.8XXA - Other injury of unspecified body region, initial encounter Status: Acute Assessment and Plan: US venous doppler of CICI LE obtained due to patient describing left calf tightness and cramping ongoing over the last 1 month, worsened after surgery with decreased L ankle and L knee range of motion. US demonstrated what appears may be up to 15cm intramuscular hematoma to left calf. I discussed this with DENNISE Ross and we agreed to stop Xarelto which was started for DVT prophylaxis. H&H low but stable. Patient will contact Chelsie Mitchell's office this week to determine if/when he is recommended to start aspirin. (4) Near syncope: Code(s): R55 - Syncope and collapse Status: Resolved Assessment and Plan: Resolved. Had some dizziness episodes postoperatively. None today, stable. (5) Hypertension: Qualifiers: Hypertension type: unspecified Qualified Code(s): I10 - Essential (primary) hypertension Code(s): I10 - Essential (primary) hypertension Status: Chronic Assessment and Plan: His indapamide and irbesartan had been held due to vagal episode 02/24 and continued BPs on the lower end. Blood pressures were trending up and his irbesartan was resumed. Indapamide still held. BPs stable today, last 123/54. Instructed him to continue irbesartan, hold indapamide, monitor BP at home, see PCP in 1 week. (6) Hyperlipidemia: Qualifiers: Hyperlipidemia type: unspecified Qualified Code(s): E78.5 - Hyperlipidemia, unspecified Code(s): E78.5 - Hyperlipidemia, unspecified Status: Chronic Assessment and Plan: Maintained on home statin therapy. Additional Plan Thank you for allowing me to participate in this pleasant gentleman's care. He is medically stable for discharge from hospitalist standpoint. Recommendations: Continue irbesartan; hold indapamide; monitor BP at home and follow up with PCP in 1 week; follow up with cardiology outpatient. Subjective Date/time seen: 02/27/21 1430 Interval history: Mr. Chavez is a pleasant 70 yo M seen in follow up POD#3 s/p elective right total knee arthroplasty by Dr Mitchell. He is doing well today. He denies dizziness, chest pain, palpitations or shortness of breath. He is tolerating oral intake without nausea or vomiting. Still with pain and swelling to left lower leg. at the bed for bedside. Review of Systems Review of Systems: All systems reviewed & are unremarkable except as noted in HPI and below Exam Narrative: Exam Narrative: General: Well-developed male resting comfortably supine in bed in no acute distress. HEENT: Normocephalic, EOMI, oral mucosa moist. Neck: Supple. Chest: Lungs clear to auscultation in all pacheco. Respirati
--- NOTE | 2021-03-31 13:10 | PM.DS ---
DS: Admitting Diagnosis Admitting Diagnosis Admitting Diagnosis: admitting diagnosis severe primary osteoarthritis left knee joint discharge diagnosis severe primary osteoarthritis left knee joint status post total knee arthroplasty DS: Summary Hospital Course Hospital Course: Patient was admitted after total knee arthroplasty left knee, had a diagnosis of severe primary osteoarthritis left knee joint. Patient did have significant swelling postoperatively Xarelto was discontinued. No DVT was noted but he did have a hematoma was somewhat limited in physical therapy initially because of swelling and pain. This resolved to the point where he is able to participate get up ambulate and was comfortable. He was deemed stable for discharge home 3 days postop on 02/27 21. Time Spent with Patient Time attestation: Total time spent providing and/or coordinating discharge services: Exam Narrative: Exam Narrative: well-developed well-nourished male no acute distress postop day 3 vital signs are stable he is afebrile neurovascular the patient is intact wound is clean and dry calves are benign. The patient is alert oriented x3. Normal mood and affect. Tolerating physical therapy well up ambulating independently with a walker following commands for total knee arthroplasty protocol. Discharge Plan Discharge Attending physician on discharge: Qamar Mitchell Consulting providers: Va Patino ; Zechariah Nixon ; Harmony Cortes ; Darcy Nevarez ; Cody Smith ; Emory Forrest ; Chuck Barber Discharging Clinician: Cody Smith Anticipated Discharge Date/Time: 02/27/21 13:41 Patient Disposition: Home, Self-Care Activity: no shower and follow weight bearing status Diet: as tolerated Wound Care Instructions: keep dressing dry and change dressing daily Discharge Instructions: Discharged home gentle diet and activity as tolerated and weight-bearing as tolerated left lower extremity with walker. Patient to have outpatient physical therapy per total knee protocol beginning early next week as scheduled. Elevate the leg for swelling control. Change dressing daily, keep the wound clean and dry on x-ray evidence or drainage erythema heater other signs of infection. Patient be discharged with Brightwood 7 5 mg 1 tablet every 4 hours p.r.n. severe pain. Follow up 2 weeks postop for staple removal and wound recheck. Patient's call the office immediately if any problems difficulties or questions regarding his postop course at [phone]. Hold Xarelto for now, patient call the office next week for further instructions on anticoagulation therapy. Hospitalist Discharge Instructions (Va Patino PA-C): Please call to schedule a follow-up appointment with Dr Ayala around 1 week from now. Please hold off on taking your indapamide until your appointment with Dr Ayala. This medication has been held in the hospital after your surgery because your blood pressures have been low. Please check your blood pressures daily at home and record a log to show at your follow up appointment, since one or both of your medications will likely need added back soon. Call your doctor if your blood pressure is lower than 100/60 and/or higher than 180/95. You can take MiraLax daily as needed for constipation. You can also take dulcolax tablets or suppositories as needed for constipation. These medications can be purchased over the counter. Patient Instructions: Rivaroxaban (By mouth), Precautions after Total Joint Replacement Surgery (DC), Knee Replacement (DC) Stand Alone Forms: General Discharge Information Follow-up/Referrals: Qamar Mitchell MD [Physician] - (Follow-up for pre scheduled postop appointment with Dr. Mitchell) Zechariah Nixon MD [Physician] - (Office dennis
== END 2021-02-27 16:00 | disposition home or self-care (01) ==
PROVIDERS: Physician Assistant; Admitting Provider Orthopaedic Surgery; PCP Family Medicine; Visit Provider Orthopaedic Surgery
PROC: (CPT 27447; principal; 2021-02-24 07:30)
DX: M17.12 Unilateral primary osteoarthritis, left knee (principal); G89.18 Other acute postprocedural pain; M96.840 Postprocedural hematoma of a musculoskeletal structure following a musculoskeletal system procedure; I44.7 Left bundle-branch block, unspecified; I10 Essential (primary) hypertension; R55 Syncope and collapse; R01.1 Cardiac murmur, unspecified; E78.5 Hyperlipidemia, unspecified; M79.662 Pain in left lower leg; Z87.891 Personal history of nicotine dependence; Z86.73 Personal history of transient ischemic attack (TIA), and cerebral infarction without residual deficits
CPT/HCPCS: 27447; 64447; 36415; 73560; 80048; 80307; 82040; 83036; 83735; 85014; 85018; 85025; 85055; 86850; 86900; 86901; 93005; 93306; 93970; 97110; 97116; 97161; 97165; 97530; 97535; A9270; C1713; C1776; C9803; G0378; J0171; J0690; J1100; J1170; J1885; J2250; J2270; J2405; J2704; J2795; J3010; J3370; J7030; J7040; J7120; Q9957; U0003; U0005

== ENCOUNTER 2021-03-04 10:59 | Outpatient (CLI) | payer MEDICARE, SELFPAY ==
--- NOTE | ~2021-03-04 | US_ITS ---
EXAMINATION: US venous doppler [facility] DATE: 03/04/2021 11:40 INDICATION: Left lower limb pain. TECHNIQUE: Grayscale ultrasound images without and with compression and Doppler ultrasound images of the left lower extremity veins were obtained. COMPARISON: Ultrasound 02/25/2021 FINDINGS: The visualized portions of left common femoral vein, profunda (deep) femoral vein, femoral vein, post erior tibial veins, and greater saphenous vein outflow are patent. There is thrombosis involving a po sterior tibial vein and a peroneal vein. IMPRESSION: 1. Deep vein thrombosis involving left posterior tibial and peroneal veins. Reviewed, dictated and finalized at location B.
== END 2021-03-04 11:00 | disposition home or self-care (01) ==
PROVIDERS: PCP Family Medicine; Visit Provider Orthopaedic Surgery
DX: I82.402 Acute embolism and thrombosis of unspecified deep veins of left lower extremity (principal)
CPT/HCPCS: 93971

== ENCOUNTER 2021-04-06 13:30 | Observation (INO) | payer MEDICARE, SELFPAY ==
[2021-04-06] VITALS (14 sets, daily range): BP systolic 101–146; BP diastolic 60–77; PULSE 62–82; RESP 12–20; TEMP 36–36.7; O2SAT 97–100; BMI 30.2
--- NOTE | ~2021-04-06 | XR_ITS ---
EXAMINATION: XR chest 2V DATE: 04/06/2021 14:09 INDICATION: Chest pain and syncope TECHNIQUE: PA and lateral views of the chest are obtained. COMPARISON: 02/03/2014 FINDINGS: The lungs are free of acute opacities. There is no pleural effusion or pneumothorax. The ca rdiomediastinal silhouette is normal. There is mild thoracic spondylosis. IMPRESSION: 1. No acute cardiopulmonary abnormality. Reviewed, dictated and finalized at location B.
--- NOTE | ~2021-04-06 | CT_ITS ---
EXAMINATION: CTA chest PE protocol DATE: 04/06/2021 15:23 INDICATION: Chest pain TECHNIQUE: Computed tomography angiography (CTA) of the chest was performed with 100 mL Omnipaque-350 intravenous contrast timed to evaluate the pulmonary arteries. Coronal maximum intensity projection 3D-reconstructions were created by the technologist. The dose-length product (DLP) was 672.67 mGy-cm. Automated exposure control and iterative reconstruction technique were employed. COMPARISON: None. FINDINGS: The pulmonary arteries are well-opacified. No pulmonary embolism is identified. There is de pendent atelectasis. A calcified nodule of the right upper lobe is consistent with old granulomatous disease. There is a 4 mm nodule of the left lower lobe on image 80. There is no pleural effusion or p neumothorax. No pathologically enlarged thoracic lymph nodes are identified. The heart size is normal . There is mild thoracic spondylosis. There is severe lumbar spondylosis at L1-2. An 11 mm cyst is no charlie in the left hepatic lobe. IMPRESSION: 1. No pulmonary embolism or acute cardiopulmonary abnormality. 2. 4 mm nodule of the left lower lobe, likely old granulomatous disease. If the patient has no risk f actors for malignancy, no further follow up is required. If there are risk factors for malignancy (i .e., history of smoking, asbestos or radiation exposure), consider followup CT in 12 months. Reviewed, dictated and finalized at location B. IMPRESSION: 1. No pulmonary embolism or acute cardiopulmonary abnormality. 2. 4 mm nodule of the left lower lobe, likely old granulomatous disease. If the patient has no risk factors for malignancy, no further follow up is required. If there are risk factors for malignancy (i.e., history of smoking, asbestos o r radiation exposure), consider followup CT in 12 months.
--- NOTE | 2021-04-06 13:44 | ECG_ITS ---
Measurements Intervals [place] Rate: 62 P: -3 LA: 152 QRS: -31 QRSD: 154 T: 88 QT: 457 QTc: 464 Interpretive Statements SINUS RHYTHM LEFT AXIS DEVIATION LEFT BUNDLE BRANCH BLOCK ABNORMAL ECG Electronically Signed On 04-06-2021 13:59:05 CDT by Chuck Barber D.O.
--- NOTE | 2021-04-06 14:10 | ED.SYNCOPE ---
HPI - Syncope General Chief Complaint: Syncope Stated Complaint: SYNCOPAL EPISODE Time Seen by Provider: 04/06/21 13:42 History of Present Illness HPI narrative: Patient is a 70-year-old male who presents ER with syncope. Patient reports he was at [facility] walking got to the checkout brie when he started to feel lightheaded. He was also having discomfort over his sternum near his epigastrium. He decided to sit down. While sitting down he lost consciousness and his helped him to the ground. He then woke up and sat up and got lightheaded and nearly passed out again. He is still having some central chest discomfort. Patient reports while walking trauma morning he was having episodes where he would get some chest discomfort and he would stop and go away. Most reports he was having some gas as well but is unsure if the 2 are related. Reports history of an abnormal EKG and heart valve where he was told he needed to have a NILDA. Patient also has history of DVT and is currently on Eliquis. Reports swelling is gone down his leg where he had the DVT. Related Data Home Medications Medication Instructions Recorded Confirmed irbesartan 300 mg PO HS 11/21/19 02/24/21 simvastatin 20 mg PO HS 11/21/19 02/24/21 cetirizine [Zyrtec] 10 mg PO DAILY 02/15/21 02/24/21 glucosamine-chondroitin [Osteo 1 tablet PO BID 02/15/21 02/24/21 Bi-Flex] indapamide 2.5 mg PO DAILY 02/15/21 02/24/21 ikhnalfavltw-gdxmyotd-atxogp 1 tablet PO DAILY 02/15/21 02/24/21 omega 6-gyg-vem-fish oil [Fish Oil] 1 cap PO DAILY 02/15/21 02/24/21 Allergies Allergy/AdvReac Type Severity Reaction Status Date / Time No Known Allergies Allergy Verified 02/24/21 11:17 Review of Systems Review of Systems: All systems reviewed & are unremarkable except as noted in HPI and below Constitutional: Constitutional: Denies chills, Denies fever(s) and Denies weakness Eyes: Eyes: Denies change in vision ENT: Denies nasal congestion and Denies sore throat Cardiovascular: Cardiovascular: Reports chest pain, Denies rapid heart rate and Denies radiating jaw, neck or arm pain Respiratory: Respiratory: Denies cough and Denies dyspnea Gastrointestinal: Gastrointestinal: Denies abdominal pain, Denies nausea and Denies vomiting Neurologic: Reports dizziness, Reports syncope, Denies focal weakness and Denies numbness PMFSH Past Medical History Medical History (Updated 04/06/21 @ 16:04 by Geovany Milian MD) Arthritis Hyperlipidemia Hypertension TIA (transient ischemic attack) global amnesia - 2007, 2012 Surgical History Surgical History (Updated 04/06/21 @ 14:13 by Geovany Milian MD) History of arthroplasty of left knee Family History Family History Sibling Diabetes mellitus Type 1 diabetes Mother Pacemaker Dementia Father Abdominal aortic aneurysm Carcinoma of colon Skin cancer Social History Social History Social History: Mr. Chavez lives at home with his , Hanane, in [place]. 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 He drinks around 6 beers per week. He smoked cigarettes around 1 pack per day for 15 years and quit around 1984. Denies other substance use. PCP: Dr Cricket Ayala POA: , Hanane Code: Full code status Smoking packs per day: 1 Smoking cigarettes per day: 20.0 Years smoked: 15 Smoking pack-years: 15.00 Smoking status: Former smoker Additional smoking assessment comments: DENIES ANY FORM OF TOBACCO USE Alcohol intake: current Drinks per week: 6 Substance use: never Substance use type: does not use Spiritual care concerns: No Exam Narrative: Exam Narrative: GENERAL: Well-appearing, well-nourished, and in no acute distress. HEAD: Normocephalic, atraumatic. EYES: PERRL and EOMI. ENT: Mucous membranes moist. CHEST: Clear
[2021-04-06 14:11] LABS: Basophils Absolute Auto 0.1 K/mm3 (0.0-0.1); Basophils Percent Auto 0.9 % (0.2-1.2); Eosinophils Absolute Auto 0.1 K/mm3 (0-0.3); Eosinophils Percent Auto 0.7 % (0-4.4); Hematocrit 42.9 % (42.0-52.0); Hemoglobin 14.2 g/dL (14.0-18.0); Immature Granulocyte Absolute 0.02 K/mm3 (0.00-0.031); Immature Granulocyte Percent A 0.3 % (0-0.5); Lymphocytes Absolute Auto 1.35 K/mm3 (0.9-3.2); Lymphocytes Percent Auto 19.4 % (18.3-44.2); Mean Corpuscular HGB Conc 33.1 g/dl (32-36); Mean Corpuscular Hemoglobin 29.4 pg (26-34); Mean Corpuscular Volume 88.8 fl (80-100); Mean Platelet Volume 10.3 fl (7.4-10.4); Monocytes Absolute Auto 0.6 K/mm3 (0.1-0.6); Monocytes Percent Auto 8.2 % (2.6-8.5); Neutrophils Absolute Auto 4.9 K/mm3 (1.3-6.7); Neutrophils Percent Auto 70.5 % (45.5-73.1); Platelet Count Result 182 k/mm3 (150-375); Red Blood Count 4.83 M/mm3 (4.6-6.20); Red Cell Distribution Width 12.8 % (11.5-14.5)
[2021-04-06 14:23] LABS: Anion Gap 9 mmol/L (8-16); Blood Urea Nitrogen 24 mg/dL (9-20); Calcium 9.6 mg/dL (8.4-10.2); Carbon Dioxide 26 mmol/L (22-30); Chloride 104 mmol/L (98-107); Estimated CRCL calculation 58 ml/min; Estimated Glomerular Filt Rate 55; Glucose 112 mg/dL (75-110); Potassium 3.4 mmol/L (3.4-5.0); Sodium 139 mmol/L (137-145)
[2021-04-06 14:32] LABS: INR 1.1; Prothrombin Time 14.9 Seconds (11.1-14.7)
[2021-04-06 14:33] LABS: Partial Thromboplastin Time 25.8 SECONDS (22.3-36.8)
[2021-04-06 14:35] LABS: Troponin I < 0.012 ng/mL (0.000-0.034)
[2021-04-06 14:36] LABS: Troponin I < 0.012 ng/mL (0.000-0.034)
[2021-04-06 17:20] LABS: Troponin I < 0.012 ng/mL (0.000-0.034)
--- NOTE | 2021-04-06 18:13 | ADMGEN ---
This patient, Aravind Chavez, was admitted to IMU Room 205-01. Patient/family oriented to hospital policies and general routines including ID bracelet, bed and alarms, visiting hours, pain management, procedures, bathroom and other care routines, personal items, smoking policy, room service/diet, and visiting hours. Information on how to activate the Rapid Response Team has been discussed. Patient/Family are encouraged to report perceived risks to care and to ask questions if they do not understand what they are told or what they should do.
[2021-04-06] MEDS: ACETAMINOPHEN 325 MG TABLET 650 MG PO (18:25)
[2021-04-06 20:38] LABS: Troponin I < 0.012 ng/mL (0.000-0.034)
--- NOTE | 2021-04-06 20:38 | PM.IMHP ---
H&P: HPI History of Present Illness Date/Time: 04/06/21 21:20 Chief Complaint: chest pain and passed out Narrative: 70-year-old male with past medical history of DVT February 2021, grade 2 diastolic dysfunction, aortic stenosis and mild pulmonary hypertension who presented to the ER after having chest pain and syncopal event while at the store. Today he was at [employer] and they were in the store for quite some time. When he got to the checkout counter the patient reported that he felt lightheaded and unwell. He went to sit down on an end cap. No sooner at any got sat down he had a syncopal event which his caught him and eased him to the ground. When he came to he was diaphoretic and weak. he reports that he had just eaten a beef and ramirez burrito just prior coming to the store. Shortly thereafter he began having some epigastric discomfort. He denies actually having any true pain. He cannot describe the discomfort. He thought that he may be having indigestion from his lunch. As the symptoms progressed the pain did go up under his sternum and then was actually in his upper esophagus. By the time he arrived to the ER the discomfort had resolved. He reported that discomfort seem to improve when he would stop moving and would rest for a minute or 2. The patient reports that about a week ago when he was walking around store he had a similar episode as what happened today. His episode during the prior hospitalization was attributed to orthostatic hypotension and dehydration. I requested the nursing staff complete orthostatic blood pressures. The patient had almost a 40 point drop in systolic blood pressures between supine and standing position. The patient reported that he had just resumed his home hydrochlorothiazide 3 days ago. The patient had 3 sets of cardiac enzymes are negative at the time of my evaluation. He had had a stress test prior to his knee replacement in February of 2021. He had an echocardiogram due to his near syncopal event postoperatively and his echocardiogram demonstrated grade 2 diastolic dysfunction, mild aortic stenosis, normal EF and likely mild pulmonary hypertension but is study was difficult. It was recommended to the patient that he have an outpatient echocardiogram after he recovers from his knee replacement. A week after his knee replacement he also developed prone ill and posterior tibial left-sided DVTs. He has been having some swelling in his left lower extremity due to that but this has subsequently resolved. It is postoperative. He had initially gained 11 lb. But he reports with improvement in his swelling from his DVT he is actually down 11 lb from his preoperative weight. He denies any cough, congestion, shortness of breath. He had a stat CTA of the chest performed in the ER that was negative for pulmonary embolism. He has been compliant with his home Eliquis. He does have chronic urinary frequency and occasional incomplete bladder emptying. He reports that his last PSA was normal. He usually gets up 2-3 times a night to urinate. Review of Systems Review of Systems: Narrative: 12 systems were reviewed with pertinent positives and negatives per HPI. Except as documented in the HPI, all other systems were reviewed and are negative. [facility] Past Medical History Medical History (Updated 04/07/21 @ 00:48 by Rahda Lopes DO) Aortic valve stenosis Arthritis DVT (deep venous thrombosis) (03/04/21) Left posterior tibial and peroneal veins postop left total knee arthroplasty Grade II diastolic dysfunction echocardiogram 02/2021: mild increased left ventricular wall thickness, mildly abnormal septal wall motion rated until left bundle-branch block, left ventricular diastolic dysfunction grade 2, mild aortic valve stenosis, probable mild mitral valve regurgitation, trace tricuspid valve regurgitation, mild pulmonary hypertension with RVSP of 43 Hyperlipidemia Hypertension Left bundle branch block TIA (herrmann
[2021-04-06] MEDS: APIXABAN 5 MG TABLET PO (21:17)
[2021-04-06] MEDS: SIMVASTATIN 20 MG TABLET PO (21:17)
[2021-04-06] MEDS: IRBESARTAN 150 MG TABLET 300 MG PO (21:17)
[2021-04-06] MEDS: HYDROcodone/acetaminophen (*CRX) 5-325 MG TABLET 1 TAB PO (22:46)
[2021-04-07] VITALS (11 sets, daily range): BP systolic 128–151; BP diastolic 60–74; PULSE 64–76; RESP 18–20; TEMP 36.3–36.8; O2SAT 97–99
[2021-04-07] MEDS: SODIUM CHLORIDE 0.9% IV 1,000 ML 999 ML IV CONT (01:25)
[2021-04-07] MEDS: SODIUM CHLORIDE 0.9% IV 1,000 ML 100 ML IV CONT (02:28)
[2021-04-07] MEDS: ACETAMINOPHEN 325 MG TABLET 650 MG PO ×2 (04:40→11:47)
[2021-04-07] MEDS: LORATADINE 10 MG TABLET PO (08:55)
[2021-04-07] MEDS: OPTI-GEN TAB 1 TABLET PO (08:55)
[2021-04-07] MEDS: OMEGA 3 POLYUNSAT FATTY ACIDS 1 GM CAP PO (08:56)
[2021-04-07] MEDS: APIXABAN 5 MG TABLET PO ×2 (08:56→20:11)
[2021-04-07 09:12] LABS: Anion Gap 10 mmol/L (8-16); Blood Urea Nitrogen 22 mg/dL (9-20); Carbon Dioxide 25 mmol/L (22-30); Chloride 105 mmol/L (98-107); Estimated CRCL calculation 74 ml/min; Estimated Glomerular Filt Rate > 60; Glucose 131 mg/dL (75-110); Potassium 3.6 mmol/L (3.4-5.0); Sodium 140 mmol/L (137-145)
--- NOTE | 2021-04-07 10:28 | PM.CNCAR ---
Assessment and Plan Additional Plan this is a 70-year-old man with: Episode of syncope while he was shopping in [place] yesterday with his . He was found to be significantly orthostatic on arrival to the hospital and these symptoms described during the event are certainly consistent with that. He has had several episodes like this in the past but nothing that resulted in doretha syncope up until this episode. I doubt this episode is mediated by an abrupt asystolic pause as he did have typical symptoms of lightheadedness and diaphoresis for a period of time before losing consciousness. This did not sound like an abrupt to Sullivan-Jordan attack. He has a chronic left bundle branch block noted on his ECG. His noninvasive evaluation done last month shows mild aortic valve stenosis but not enough that would explain anything like this. He is not known to have ischemic heart disease and had a negative nuclear stress test as well. In this setting I would recommend recommending close attention to maintaining hydration. His diuretic should be stopped and I would recommend empirically reducing the dosage of Irbesartan to 150 mg daily. The blood pressure will be followed it might be necessary to add another antihypertensive to the regimen that is not a diuretic, possibly a beta-alexandria. For now I would recommend the maneuvers described above when he is stable with no longer orthostatic he can be discharged for outpatient follow-up. Pa Plata MD [facility] History of Present Illness History of Present Illness Consult date/time: 04/07/21 10:28 Reason For Visit: CHEST PAIN,SYNCOPE Narrative: this is a 6 pleasant 70-year-old man I am seeing this morning at the request of the hospitalist as an inpatient for assistance with the evaluation and management after a syncopal episode. The patient is unknown to me but has been recently seen by Dr. Nixon of our practice because of a left bundle branch block as preop evaluation prior to orthopedic surgery. The patient was hospitalized here at [place] in February of this year for total knee arthroplasty. Dr. Nixon saw him in consultation because of his left bundle branch block and tachycardia following surgery that was misinterpreted as on telemetry is being ventricular tachycardia because of his concomitant left bundle branch block. he was evaluated at that time with an echocardiogram that demonstrated normal left ventricular systolic function and very mild aortic valve stenosis. He also had a unusual echodensity below the anterior leaflet of the mitral valve of unknown significance. Possibly an artifact but renee was recommended to be done for this as an outpatient at some time. A Lexiscan stress test was done to rule out ischemic heart disease which was a negative exam. He underwent his knee surgery uneventfully and was discharged. The patient was walking through [place] yesterday with his and began to feel unwell with symptoms of lightheadedness some diaphoresis he sat down and felt that he was fairly certain that he was going to lose consciousness. He did lose consciousness and slumped over according to the patient for about 30 seconds. When he awakened and regained consciousness he states he felt fine and did not have any complaints. In the past he has had several occurrences like this but has never completely lost consciousness in the past. He was found to have low blood pressure upon arising and in the hospital was significantly orthostatic with about a 40 mm drop in his systolic blood pressure from supine to standing position. He was told by physicians in the past to make sure he drinks plenty of water. He does have hypertension with a medical regimen that includes Irbesartan ans Lozol. states that he was off of his diuretic for a period of time after his recent surgery his diuretic was resumed several days ago as an outpatient. Following surgery he did have a left lower extremity DVT for which he wa
--- NOTE | 2021-04-07 10:52 | PM.IMPN ---
Progress Note: A&P Assessment and Plan (1) Syncope: Qualifiers: Syncope type: unspecified Qualified Code(s): R55 - Syncope and collapse Code(s): R55 - Syncope and collapse Status: Acute Assessment and Plan: Likely due to orthostatic hypotension +/- vasovagal syncope. He is asymptomatic at this time. Continue IV fluid rehydration monitor orthostatic vital signs fall precautions appreciate cardiology consultation (2) Orthostatic hypotension: Code(s): I95.1 - Orthostatic hypotension Status: Acute Assessment and Plan: He was found to have a 38 point drop in systolic blood pressure from lying to standing. Last set or orthostatics this morning with 23 point decline from lying to standing. Discontinue indapamide Decrease irbesartan in half, 150 mg daily Continue IV fluid rehydration today. Will plan to discontinue after liter is finished as he is tolerating oral intake. Encourage increased oral fluid intake. Add DELMI hose (3) Chest pain: Qualifiers: Chest pain type: unspecified Qualified Code(s): R07.9 - Chest pain, unspecified Code(s): R07.9 - Chest pain, unspecified Status: Acute Assessment and Plan: Resolved. Chest pain was atypical in nature. Troponins negative x3. No history of ischemic disease. Appreciate cardiology consultation. No further intervention at this time (4) Hypertension: Qualifiers: Hypertension type: unspecified Qualified Code(s): I10 - Essential (primary) hypertension Code(s): I10 - Essential (primary) hypertension Status: Chronic Assessment and Plan: Blood pressures reviewed and are generally well controlled, slight elevated in the 150s systolic today. last BP 151/60 Irbesartan decreased to 150 as above. Indapamide discontinued. Follow blood pressure trends. May need additional antihypertensive (5) DVT (deep venous thrombosis): Onset Date: 03/04/21 Code(s): I82.409 - Acute embolism and thrombosis of unspecified deep veins of unspecified lower extremity Status: Inactive Assessment and Plan: Left posterior tibial and peroneal veins diagnosed February 2021 postoperatively following left knee arthroplasty continue Eliquis (6) Lung nodule < 6cm on CT: Code(s): R91.1 - Solitary pulmonary nodule Status: Acute Assessment and Plan: The patient has a 4 mm lung nodule that appear to be consistent with granulomatous disease. He does have a distant history of smoking and has not smoked since 1984. Malignancy is less likely. Will defer whether to repeat CT scan in 12 months to patient's primary care provider. Additional Plan Given the patients hemodynamic stability, will downgrade to medical floor with telemetry. Subjective Date/time seen: 04/07/21 10:52 Interval history: Date of service: 04/07/2021 Aravind Ruth this 70-year-old male with a history of recent DVT in February 2021 following left knee arthroplasty, diastolic dysfunction, aortic stenosis, left bundle-branch block, mild pulmonary hypertension, hypertension, hyperlipidemia is seen in follow-up for orthostatic hypotension resulting in syncope. He is feeling better today. He denies dizziness or lightheadedness. No shortness of breath or orthopnea. Denies palpitations. No further episodes of chest pain. He does admit that he has not been drinking as much water as he was previously. His appetite has been good. He has not gotten up and walked around today but would like to get up to the chair. No episodes of diaphoresis. No weakness. Denies nausea or vomiting. No fevers or chills. He denies urinary symptoms. He has regular bowel movements. Denies melena, hematochezia, hematuria. He has no additonal concerns. His is present at the bedside. All of their questions were answered. Review of Systems Review of Systems: All
[2021-04-07] MEDS: IRBESARTAN 150 MG TABLET PO (20:11)
[2021-04-07] MEDS: SIMVASTATIN 20 MG TABLET PO (20:11)
[2021-04-07] MEDS: HYDROcodone/acetaminophen (*CRX) 5-325 MG TABLET 1 TAB PO (22:19)
[2021-04-08] VITALS (8 sets, daily range): BP systolic 133–153; BP diastolic 62–69; PULSE 63–74; RESP 17–20; TEMP 35.6–36.1; O2SAT 96–99
--- NOTE | 2021-04-08 07:49 | PM.IMPN ---
Progress Note: A&P Assessment and Plan (1) Syncope: Qualifiers: Syncope type: unspecified Qualified Code(s): R55 - Syncope and collapse Code(s): R55 - Syncope and collapse Status: Acute Assessment and Plan: Likely due to orthostatic hypotension +/- vasovagal syncope. Continue IV fluid rehydration monitor orthostatic vital signs fall precautions appreciate cardiology consultation now asymptomatic orthostatic blood pressures have improved today with lying systolic 153 and sitting /standing systolics 133 (2) Orthostatic hypotension: Code(s): I95.1 - Orthostatic hypotension Status: Acute Assessment and Plan: He was found to have a 38 point drop in systolic blood pressure from lying to standing at admission. Then next set or orthostatics yesterday with 23 point decline from lying to standing. Discontinued indapamide Decreased irbesartan in half, 150 mg daily Continued IV fluid rehydration This morning his lying blood pressure was 153/68 with a heart rate of 66, sitting blood pressure is 133/67, standing blood pressure was 133/69. Awaiting recommendations of supervisor international reservations as they were making medication changes last evening patient will need to follow-up with supervisor international reservations after discharge. He is tolerating oral intake. Encouraged increased oral fluid intake. Continue DELMI hose (3) Chest pain: Qualifiers: Chest pain type: unspecified Qualified Code(s): R07.9 - Chest pain, unspecified Code(s): R07.9 - Chest pain, unspecified Status: Acute Assessment and Plan: Resolved. Chest pain was atypical in nature. Troponins negative x3. No history of ischemic disease. Appreciate cardiology consultation. Awaiting recommendations of supervisor international reservations as they were making medication changes to improve orthostatic BPs. (4) Hypertension: Qualifiers: Hypertension type: unspecified Qualified Code(s): I10 - Essential (primary) hypertension Code(s): I10 - Essential (primary) hypertension Status: Chronic Assessment and Plan: Blood pressures reviewed and are generally well controlled Irbesartan decreased to 150 as above. Indapamide discontinued. Follow blood pressure trends. daily orthostatic blood pressures systolics 130 to 150s (5) DVT (deep venous thrombosis): Onset Date: 03/04/21 Code(s): I82.409 - Acute embolism and thrombosis of unspecified deep veins of unspecified lower extremity Status: Inactive Assessment and Plan: Left posterior tibial and peroneal veins diagnosed February 2021 postoperatively following left knee arthroplasty continue Eliquis encourage activity encouraged daily knee exercises as he was instructed (6) Lung nodule < 6cm on CT: Code(s): R91.1 - Solitary pulmonary nodule Status: Acute Assessment and Plan: The patient has a 4 mm lung nodule that appear to be consistent with granulomatous disease. He does have a distant history of smoking and has not smoked since 1984. Malignancy is less likely. Patient is aware he needs to follow-up with PCP and repeat CT scan in 3-12 months Additional Plan Subjective Date/time seen: 04/08/21 07:49 Interval history: Aravind Ruth this 70-year-old male with a history of recent DVT in February 2021 following left knee arthroplasty, diastolic dysfunction, aortic stenosis, left bundle-branch block, mild pulmonary hypertension, hypertension, hyperlipidemia is admitted for orthostatic hypotension resulting in syncope. He is feeling better today. He denies dizziness or lightheadedness. No shortness of breath or orthopnea. Denies palpitations. No further episodes of chest pain. He does admit that he has not been drinking as much water as he was right after his knee surgery. No episodes of diaphoresis. No weakness. Denies nausea or vomiting. No fevers or chills. He denies urinary symptoms. He has
[2021-04-08] MEDS: ACETAMINOPHEN 325 MG TABLET 650 MG PO (07:55)
[2021-04-08] MEDS: OPTI-GEN TAB 1 TABLET PO (08:28)
[2021-04-08] MEDS: APIXABAN 5 MG TABLET PO (08:28)
[2021-04-08] MEDS: OMEGA 3 POLYUNSAT FATTY ACIDS 1 GM CAP PO (08:28)
[2021-04-08] MEDS: LORATADINE 10 MG TABLET PO (08:29)
--- NOTE | 2021-04-08 15:12 | PM.PNCARD ---
Progress Note: A&P Assessment and Plan (1) Syncope: Qualifiers: Syncope type: unspecified Qualified Code(s): R55 - Syncope and collapse Code(s): R55 - Syncope and collapse Status: Acute Assessment and Plan: Secondary to orthostatic hypotension. His diuretic has been discontinued and irbesartan dose decreased. He has also been instructed to avoid dehydration by having adequate fluid intake. He is asymptomatic today with those changes. (2) Orthostatic hypotension: Code(s): I95.1 - Orthostatic hypotension Status: Acute Assessment and Plan: See above. Subjective Date/time seen: 04/08/21 15:12 Interval history: Cardiology follow-up for syncope Date of service 04/08/2021: Patient is feeling well today. He denies any dizziness, lightheadedness when he gets up out of bed. he does not have complaints of any kind today. From my perspective he is appropriate for discharge today. Review of Systems Constitutional: Constitutional: Reports no additional constitutional complaints Eyes: Eyes: Reports no additional eye complaints ENT: Reports system reviewed and no additional complaints, except as documented Cardiovascular: Cardiovascular: Reports as per HPI Respiratory: Respiratory: Reports no additional respiratory complaints Gastrointestinal: Gastrointestinal: Reports nausea Musculoskeletal: Musculoskeletal: Reports no additional musculoskeletal complaints Integumentary/Breasts: Skin/Breast: Reports system reviewed and no additional complaints, except as docu Neurologic: Reports as per HPI Endocrine: Endocrine: Reports no additional endocrine complaints Hematologic/Lymphatic: Hematologic/Lymphatic: Reports no additional hematologic/lymphatic complaints Allergic/Immunologic: Allergic/Immunologic: Reports no additional allergic/immunologic complaints Exam Const: General: comfortable and no acute distress HENMT: Mouth: Yes moist mucous membranes Eyes: Sclera: sclerae normal Pupils: Equal, round and reactive pupils present Neck: Neck: supple and no JVD Thyroid: thyroid normal Resp: Effort & Inspection: normal respiratory effort Auscultation: clear to auscultation bilaterally Cardio: Rate: regular rate Rhythm: regular rhythm Heart sounds: Murmur heart sound present systolic II/ and at the left sternal border GI: GI Palp: Yes Soft to palpation Auscultation: normal bowel sounds Skin: General skin exam: normal color Neuro: Cranial nerves: Yes Equal, round and reactive pupils present Cognition (Neuro): normal cognition Extrem: General: normal to inspection Other: surgical dressing noted Psych: Mental Status: mental status grossly normal Affect: normal affect Objective Data Vital Signs Vital Signs: Vital Signs - 24 hr 04/07/21 16:00 04/07/21 20:00 04/07/21 23:34 Temperature 36.8 C 36.8 C 36.6 C Pulse Rate 66 71 76 Respiratory Rate 18 18 20 Blood Pressure 147/63 H 147/63 H 150/60 H Pulse Oximetry 98 98 99 04/08/21 03:37 04/08/21 08:00 04/08/21 08:44 Temperature 36.1 C L 35.7 C L Pulse Rate 74 68 66 Respiratory Rate 20 20 Blood Pressure 143/62 H 153/68 H Pulse Oximetry 96 99 04/08/21 08:46 04/08/21 08:47 04/08/21 10:39 Temperature 35.7 C L Pulse Rate 66 Respiratory Rate 20 Blood Pressure 133/69 153/68 H Pulse Oximetry 99 98 04/08/21 12:00 04/08/21 12:48 Temperature 35.6 C L Pulse Rate 63 64 Respiratory Rate 17 Blood Pressure 145/69 H Pulse Oximetry 99 Intake/Output Intake/Output: Intake & Output 04/05/21 04/06/21 04/07/21 04/08/21 23:59 23:59 23:59 23:59 Intake Total 4420 1140 Output Total 300 3800 800 Balance -300 620 340 Meds/Results Medications: Active Medications Generic Name Dose Route Start Last Admin Trade Name Freq PRN Reason Stop Dose Admin Acetaminophen 650 mg 04/06/21 16:14 04/08/21 07:55 Acetaminophen 325 Mg Tablet PO 650 mg Q4H PRN Administrat
--- NOTE | 2021-04-08 17:17 | PM.DS ---
DS: Admitting Diagnosis Admitting Diagnosis Admitting Diagnosis: Syncope Orthostatic Hypotension DS: Discharge Diagnosis Discharge Diagnosis (1) Syncope: Qualifiers: Syncope type: unspecified Qualified Code(s): R55 - Syncope and collapse Code(s): R55 - Syncope and collapse Status: Acute Assessment and Plan: Likely due to orthostatic hypotension +/- vasovagal syncope. Continue IV fluid rehydration monitor orthostatic vital signs fall precautions appreciate cardiology consultation now asymptomatic orthostatic blood pressures have improved today with lying systolic 153 and sitting /standing systolics 133 (2) Orthostatic hypotension: Code(s): I95.1 - Orthostatic hypotension Status: Acute Assessment and Plan: He was found to have a 38 point drop in systolic blood pressure from lying to standing at admission. Then next set or orthostatics yesterday with 23 point decline from lying to standing. Discontinued indapamide Decreased irbesartan in half, 150 mg daily Continued IV fluid rehydration This morning his lying blood pressure was 153/68 with a heart rate of 66, sitting blood pressure is 133/67, standing blood pressure was 133/69. Awaiting recommendations of fibre optics jointer as they were making medication changes last evening patient will need to follow-up with fibre optics jointer after discharge. He is tolerating oral intake. Encouraged increased oral fluid intake. Continue DELMI hose (3) Chest pain: Qualifiers: Chest pain type: unspecified Qualified Code(s): R07.9 - Chest pain, unspecified Code(s): R07.9 - Chest pain, unspecified Status: Acute Assessment and Plan: Resolved. Chest pain was atypical in nature. Troponins negative x3. No history of ischemic disease. Appreciate cardiology consultation. Awaiting recommendations of fibre optics jointer as they were making medication changes to improve orthostatic BPs. (4) Hypertension: Qualifiers: Hypertension type: unspecified Qualified Code(s): I10 - Essential (primary) hypertension Code(s): I10 - Essential (primary) hypertension Status: Chronic Assessment and Plan: Blood pressures reviewed and are generally well controlled Irbesartan decreased to 150 as above. Indapamide discontinued. Follow blood pressure trends. daily orthostatic blood pressures systolics 130 to 150s (5) DVT (deep venous thrombosis): Onset Date: 03/04/21 Code(s): I82.409 - Acute embolism and thrombosis of unspecified deep veins of unspecified lower extremity Status: Inactive Assessment and Plan: Left posterior tibial and peroneal veins diagnosed February 2021 postoperatively following left knee arthroplasty continue Eliquis encourage activity encouraged daily knee exercises as he was instructed (6) Lung nodule < 6cm on CT: Code(s): R91.1 - Solitary pulmonary nodule Status: Acute Assessment and Plan: The patient has a 4 mm lung nodule that appear to be consistent with granulomatous disease. He does have a distant history of smoking and has not smoked since 1984. Malignancy is less likely. Patient is aware he needs to follow-up with PCP and repeat CT scan in 3-12 months DS: Summary Hospital Course Hospital Course: Diuretic has been discontinued and irbesartan dose decreased. Treated dehydration. Monitored blood pressure and heart rate (pulse) daily. No further syncope and orthostatic hypotension improved with med changes and interventions. After Discharge, PCP and cardiology follow-up visit to be seen in 1-2 weeks for syncope and orthostatic hypotension. As well as PCP visit for lung nodule F/U CT scan. Time Spent with Patient Time attestation: Total time spent providing and/or coordinating discharge services:45 minutes Exam Narrative: Exam Narrative: Mr. Ruth is well-nourished, well-appearing 70-year-old ma
== END 2021-04-08 17:47 | disposition home or self-care (01) ==
LOC: ANHED 16:04 → ANHIMU 16:57
PROVIDERS: Physician Assistant; Admitting Provider Internal Medicine; Emergency Provider Emergency Medicine; PCP Family Medicine; Visit Provider Nurse Practitioner
DX: I95.1 Orthostatic hypotension (principal); R07.9 Chest pain, unspecified; R91.1 Solitary pulmonary nodule; E78.5 Hyperlipidemia, unspecified; I10 Essential (primary) hypertension; M19.90 Unspecified osteoarthritis, unspecified site; I35.0 Nonrheumatic aortic (valve) stenosis; I44.7 Left bundle-branch block, unspecified; Z86.718 Personal history of other venous thrombosis and embolism; Z79.01 Long term (current) use of anticoagulants; Z86.73 Personal history of transient ischemic attack (TIA), and cerebral infarction without residual deficits; Z87.891 Personal history of nicotine dependence
CPT/HCPCS: 36415; 70450; 71046; 71275; 80048; 81001; 83735; 84484; 85025; 85610; 85730; 93005; 96360; 96361; 99284; 99285; A9270; G0378; J7030; Q9967

== ENCOUNTER 2021-04-08 22:45 | Emergency (ER) | payer MEDICARE, SELFPAY ==
--- NOTE | ~2021-04-08 | CT_ITS ---
EXAMINATION: CT brain wo con EXAM DATE: 04/08/2021 23:50 INDICATION: Change in blood pressure. Syncope. TECHNIQUE: Spiral CT of the head was performed without contrast. Axial, coronal and sagittal images were reviewed. The dose-length product (DLP) for this examination was 605.33 mGy-cm. The exposure w as tailored according to patient size, and iterative reconstruction (ASIR) was used as additional dos e reduction technique. Comparison is made to prior examination from 07/28/2013. FINDINGS: There is no acute intraparenchymal hemorrhage. No evidence of intraparenchymal brain mass lesion. No evidence of acute infarction. Please note that initial head CT has limited sensitivity f or small or acute infarctions. Old left external capsular and right basal ganglia lacunar infarction s. There is mild periventricular and subcortical hypodensity, nonspecific but probably related to sm all vessel ischemic disease. There is mild to moderate prominence of the sulci and ventricles relat ed to cerebral atrophy. There is intracranial carotid arteriosclerosis. There are no extra-axial c ollections. There is no mass effect or midline shift. The orbits are unremarkable. Soft tissue is unremarkable. The visualized sinuses and mastoid air cells are well aerated. IMPRESSION: 1. No acute intracranial findings. 2. Chronic age related findings. 3. Old small lacunar infarctions. Reviewed, dictated and finalized at location G.
[2021-04-08 22:47] VITALS: BP 150/82; PULSE 75; RESP 14; TEMP 37; O2SAT 98
--- NOTE | 2021-04-08 22:51 | ECG_ITS ---
Measurements Intervals [place] Rate: 75 P: 25 IL: 141 QRS: -39 QRSD: 156 T: 79 QT: 425 QTc: 475 Interpretive Statements SINUS RHYTHM LEFT AXIS DEVIATION LEFT BUNDLE BRANCH BLOCK ABNORMAL ECG Electronically Signed On 04-09-2021 6:15:53 CDT by Chuck Barber D.O.
[2021-04-08 23:11] VITALS: BP 144/82; PULSE 67
[2021-04-08 23:17] LABS: Basophils Absolute Auto 0.1 K/mm3 (0.0-0.1); Basophils Percent Auto 0.8 % (0.2-1.2); Eosinophils Absolute Auto 0.1 K/mm3 (0-0.3); Eosinophils Percent Auto 1.2 % (0-4.4); Hematocrit 44.6 % (42.0-52.0); Hemoglobin 14.9 g/dL (14.0-18.0); Immature Granulocyte Absolute 0.01 K/mm3 (0.00-0.031); Immature Granulocyte Percent A 0.2 % (0-0.5); Lymphocytes Absolute Auto 1.34 K/mm3 (0.9-3.2); Lymphocytes Percent Auto 20.7 % (18.3-44.2); Mean Corpuscular HGB Conc 33.4 g/dl (32-36); Mean Corpuscular Hemoglobin 29.4 pg (26-34); Mean Platelet Volume 10.3 fl (7.4-10.4); Monocytes Absolute Auto 0.6 K/mm3 (0.1-0.6); Neutrophils Absolute Auto 4.4 K/mm3 (1.3-6.7); Neutrophils Percent Auto 68.1 % (45.5-73.1); Platelet Count Result 187 k/mm3 (150-375); Red Blood Count 5.07 M/mm3 (4.6-6.20); Red Cell Distribution Width 12.7 % (11.5-14.5); White Blood Count 6.5 K/mm3 (4.5-10.0)
[2021-04-08 23:18] VITALS: BP 164/87; PULSE 76
[2021-04-08 23:21] VITALS: BP 165/86; PULSE 100
[2021-04-08 23:30] LABS: Anion Gap 10 mmol/L (8-16); Blood Urea Nitrogen 19 mg/dL (9-20); Calcium 9.7 mg/dL (8.4-10.2); Carbon Dioxide 26 mmol/L (22-30); Chloride 104 mmol/L (98-107); Estimated CRCL calculation 82 ml/min; Estimated Glomerular Filt Rate > 60; Glucose 120 mg/dL (75-110); Potassium 3.8 mmol/L (3.4-5.0); Sodium 140 mmol/L (137-145)
--- NOTE | 2021-04-08 23:38 | ED.GENADULT ---
HPI - General Adult General Chief complaint: Syncope Stated complaint: Miranda clammy, Nausea Time Seen by Provider: 04/08/21 23:09 Source: patient and RN notes reviewed Mode of arrival: EMS Limitations: no limitations History of Present Illness HPI narrative: This is a 70 year old male who presents for evaluation of near syncope. Patient was discharged from [facility] 5 hours ago after an evaluation of a syncopal episode. Patient was found to be orthostatic during that hospitalization so his diuretic was discontinued and his BP medication was decreased. He states he felt fine so he was discharge. Once he returned home, he states he was walking around the house. He went to bed and he started feeling warm and flushed. He thought he was going to pass out. His states he laid down and his face was red. He reports associated nausea. His clamminess resolved with laying down but his flushed, warm feeling did not improve and he was afraid of passing out so he called 911. Once EMS arrived he states he was feeling better. He denies associated headache, dizziness, chest pain, sob, abdominal pain, melena. He has been taking anticoagulation for postoperative DVT. His CTA chest was negative for PE 2 days ago. He states he feels fine other than he felt a little off when he was standing for his orthostat. Related Data Home Medications Medication Instructions Recorded Confirmed simvastatin 20 mg PO HS 11/21/19 04/06/21 cetirizine [Zyrtec] 10 mg PO DAILY 02/15/21 04/06/21 glucosamine-chondroitin [Osteo 1 tablet PO BID 02/15/21 04/06/21 Bi-Flex] kvoysmjvjceg-dvntmhwv-ixqnfe 1 tablet PO DAILY 02/15/21 04/06/21 omega 2-pgi-ocj-fish oil [Fish Oil] 1 cap PO DAILY 02/15/21 04/06/21 Eliquis 5 mg PO BID 04/06/21 04/06/21 Allergies Allergy/AdvReac Type Severity Reaction Status Date / Time No Known Allergies Allergy Verified 04/08/21 22:46 Review of Systems Review of Systems: All systems reviewed & are unremarkable except as noted in HPI and below Cardiovascular: Cardiovascular: Denies chest pain, Denies rapid heart rate and Denies radiating jaw, neck or arm pain Respiratory: Respiratory: Denies cough and Denies dyspnea Gastrointestinal: Gastrointestinal: Denies abdominal pain, Denies diarrhea, Reports nausea and Denies vomiting Neurologic: Denies vertigo, Denies headache(s) and Denies focal weakness [facility] Past Medical History Medical History (Updated 04/09/21 @ 01:14 by Carolin Brian MD) Aortic valve stenosis Arthritis DVT (deep venous thrombosis) (03/04/21) Left posterior tibial and peroneal veins postop left total knee arthroplasty Grade II diastolic dysfunction echocardiogram 02/2021: mild increased left ventricular wall thickness, mildly abnormal septal wall motion rated until left bundle-branch block, left ventricular diastolic dysfunction grade 2, mild aortic valve stenosis, probable mild mitral valve regurgitation, trace tricuspid valve regurgitation, mild pulmonary hypertension with RVSP of 43 Hyperlipidemia Hypertension Left bundle branch block TIA (transient ischemic attack) global amnesia - 2012 Surgical History Surgical History (Updated 04/07/21 @ 00:33 by Radha Lopes DO) History of arthroplasty of left knee (02/24/21) History of colonoscopy with polypectomy (~11/2019) Family History Family History Sibling Diabetes mellitus Type 1 diabetes Mother Pacemaker Dementia Father Abdominal aortic aneurysm Carcinoma of colon Skin cancer Social History Social History (Updated 04/06/21 @ 20:47 by Radha Lopes DO) Social History: Mr. Chavez lives at home with his , Hanane, in [place]. 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 He drinks around 6 beers per week. He smoked cigarettes around 1 pack per day for 15 years and quit around 1984. Denies other
[2021-04-09 00:38] LABS: Add Urine Microscopic? YES; Appearance Urine Clear (Clear); Bilirubin Urine Negative (Negative); Blood Urine 2+ (Negative); Color Urine Yellow (Yellow); Glucose Urine UA Negative (Negative); Ketones Urine Negative (Negative); Leukocyte Esterase Ur Negative LEU/UL (Negative); Mucus Urine Rare /lpf; Nitrate Urine Negative (Negative); Protein Urine 1+ mg/dL (Negative); Specific Grav Ur 1.012 (1.001-1.035); Squamous Epithelial Cell Urine Rare /hpf (Few); Urobilinogen Urine Negative mg/dL (<2.0); WBC Urine 0-3 /hpf
[2021-04-09 00:39] LABS: Magnesium 2.1 mg/dL (1.6-2.3)
[2021-04-09 00:51] LABS: Troponin I < 0.012 ng/mL (0.000-0.034)
[2021-04-09 01:25] VITALS: BP 134/86; PULSE 67; RESP 16; TEMP 36.7; O2SAT 98
== END 2021-04-09 01:28 | disposition home or self-care (01) ==
PROVIDERS: Emergency Provider General Practice; PCP Family Medicine
DX: R55 Syncope and collapse (principal); M19.90 Unspecified osteoarthritis, unspecified site; I11.0 Hypertensive heart disease with heart failure; I50.9 Heart failure, unspecified
CPT/HCPCS: 36415; 70450; 71046; 71275; 80048; 81001; 83735; 84484; 85025; 85610; 85730; 93005; 96360; 96361; 99284; 99285; A9270; G0378; J7030; Q9967

== ENCOUNTER → 2022-07-15 08:50 | Outpatient (CLI) | payer MEDICARE, SELFPAY ==
--- NOTE | ~2022-07-15 | CT_ITS ---
EXAMINATION:CT diagnostic chest wo con DATE: 07/15/2022 09:02 INDICATION: Solitary pulmonary nodule. TECHNIQUE: Computed tomography (CT) of the chest was performed without intravenous contrast. Automate d exposure control and iterative reconstruction technique were employed. The dose-length product (DLP ) was 485.42 mGy-cm. COMPARISON: Chest CT 04/06/2021 FINDINGS: There is mild scarring at the lung apices. A calcified right lung nodule and calcified righ t hilar lymph nodes are consistent with old granulomatous disease. There is mild scarring in paraspin al right lower lobe. There is a stable 4 mm nodule in left lower lobe, likely benign. No pleural effu chris. The heart size is normal. There are coronary artery calcifications. No pericardial effusion. Th ere is a 10 mm cyst in the liver. There is a 19 mm cyst in left kidney. There are stones in left kidn ey measuring up to 4 mm. There are bridging endplate osteophytes at multiple levels in the spine, con sistent with diffuse idiopathic skeletal hyperostosis (DISH). IMPRESSION: 1. Stable small pulmonary nodule, likely benign. Reviewed, dictated and finalized at location B.
== END ==
PROVIDERS: PCP Family Medicine; Visit Provider Physician Assistant
DX: R91.1 Solitary pulmonary nodule (principal); I25.10 Atherosclerotic heart disease of native coronary artery without angina pectoris; K76.89 Other specified diseases of liver; M48.10 Ankylosing hyperostosis [Forestier], site unspecified
CPT/HCPCS: 71250

== ENCOUNTER → 2023-09-07 10:10 | Outpatient (CLI) | payer MEDICARE, SELFPAY ==
--- NOTE | ~2023-09-07 | CT_ITS ---
CT Scan of the Chest without Contrast: Clinical Indication: Solitary pulmonary nodule Technique: Contiguous sections were acquired throughout the chest without intravenous contrast. Dose reduction technique was used on this scan by utilizing automated exposure control and iterative recon struction technique. The dose-length product (DLP) was 165.19 mGy-cm. COMPARISON: 07/15/2022 Findings: There is no evidence of any significant mediastinal, hilar or axillary lymphadenopathy. Small calcifi ed right hilar lymph nodes are present. Coronary artery atherosclerotic calcifications are present. There is no evidence of pleural or pericardial effusion. Calcified right upper lobe granuloma noted. Stable 4 mm left basilar pulmonary nodule noted (axial im age 89). Images through the upper abdomen reveal no abnormalities. Impression: Stable pulmonary nodules, as above, with overall benign appearance. Reviewed, dictated and finalized at [facility]. K SORTER Impression: Stable pulmonary nodules, as above, with overall benign appearance.
== END ==
PROVIDERS: PCP Physician Assistant; Visit Provider Physician Assistant
DX: R91.1 Solitary pulmonary nodule (principal); R91.8 Other nonspecific abnormal finding of lung field
CPT/HCPCS: 71250